=== PATIENT | female | born 1960 | race Caucasian/White ===

== ENCOUNTER 2020-01-29 10:25 | Inpatient (IN) ==
--- NOTE | 2020-01-20 14:50 | PAT Medication Instructions ---
Medication Instructions Date of Service January 20, 2020 Home Medications cholecalciferol (vitamin D3) [Vitamin D3] 50 mcg PO QAM coenzyme Q10 [Co Q-10] 200 mg PO QAM cyanocobalamin (vitamin B-12) [Vitamin B-12] 1,000 mcg PO UD levothyroxine 125 mcg PO QAM meloxicam 15 mg PO DAILY PRN multivitamin 1 cap PO QAM ASK your surgeon for instructions meloxicam 15 mg PO DAILY PRN STOP taking 2 weeks before surgery coenzyme Q10 [Co Q-10] 200 mg PO QAM DO NOT take the morning of surgery cholecalciferol (vitamin D3) [Vitamin D3] 50 mcg PO QAM cyanocobalamin (vitamin B-12) [Vitamin B-12] 1,000 mcg PO UD multivitamin 1 cap PO QAM Take morning of surgery With a small sip of water, OTHERWISE NOTHING TO EAT OR DRINK AFTER MIDNIGHT: levothyroxine 125 mcg PO QAM Other Notes If you have any questions please call us at [phone] or [phone] or [phone] or [phone]
--- NOTE | 2020-01-22 14:59 | Anesthesiology Consultation ---
Date of Service January 22, 2020 Assessment & Plan (1) Encounter for pre-operative examination: COVID Status: As of 01/21 assessment, patient denies travel to endemic area, known exposure/sick contacts, or symptoms of COVID19. Patient instructed to follow strict social distancing guidelines, wear a mask in public and avoid travel for 14 days prior to surgery. Preoperative COVID19 testing completed today. Patient made aware to self-isolate as much as possible between COVID testing and surgery. Chart Review Chart Review: Acceptable Risk for Surgery and Patient seen in Pre Admission Testing Teaching & Discussion Instructed NPO after midnight before surgery, except medications with 15 cc of water. Medication instructions provided according to the PAT guidelines. History Surgery Operation Date: 01/29/20 13:50 Proposed Procedures p Left Total Knee Arthroplasty - Shree Chang MD Height/Weight Height: 5 ft 4.5 in Weight: 138.3 kg Allergies Allergy/AdvReac Type Severity Reaction Status Date / Time No Known Allergies Allergy Verified 01/17/20 14:20 Medications Home Medications Medication Instructions Recorded Confirmed Last Taken cholecalciferol (vitamin D3) 50 mcg PO QAM 01/17/20 01/17/20 Unknown [Vitamin D3] coenzyme Q10 [Co Q-10] 200 mg PO QAM 01/17/20 01/17/20 Unknown cyanocobalamin (vitamin B-12) 1,000 mcg PO UD 01/17/20 01/17/20 Unknown [Vitamin B-12] levothyroxine 125 mcg PO QAM 01/17/20 01/17/20 Unknown meloxicam 15 mg PO DAILY PRN 01/17/20 01/17/20 Unknown multivitamin 1 cap PO QAM 01/17/20 01/17/20 Unknown Past Medical History Medical History Cough in cold weather Degenerative disc disease lumbar area Hiatal hernia small and no treatment History of pericarditis about 11 years ago had heart cath and was normal. Was on colchicine for some time, relieved all symptoms. Has had a few mild flare ups since but none for several years. Hypothyroidism Morbid obesity Exercise / Class Metabolic Activity II 4-5 Yardwork/Stairs/Walk up hill (Denies CP or SOB with 1 FOS) Past Surgical History Surgical History Hx of abdominal surgery joaquín moore and then fell after surgery and injured abd Hx of appendectomy Hx of arthroscopy of right knee Hx of cardiac cath due to pericarditis [facility] about 11 years ago Hx of cholecystectomy with adhesions Hx of colonoscopy Hx of gastric bypass 20 years ago Hx of laparoscopy several Hx of total hysterectomy Past Anesthesia History No Hx of Anesthesia Complications and No Family Hx of Anesthesia Complications History of PONV No Hx of PONV and No Hx of Motion Sickness Social History Smoking Status: Never smoker Do You Dip or Chew Tobacco: No Hx Alcohol Use: No Hx Substance Use: No substance use type: does not use Review of Systems Pt denies any recent chest pain, shortness of breath, palpitations, cough, fever or URI. Physical Exam Vital Signs BP: 143/86 P: 78bpm SPO2: 96% RA T: 98.1 F R: 16 Constitutional + morbidly obese ENMT Mouth: + dental restorations (upper L side crown); no chipped teeth and no loose teeth Thyromental Distance: > or= 3.5 Finger Breadths (3.5) Mallampati Class: II Neck normal visual inspection; neck extension not limited Respiratory normal respiratory effort Auscultation: lungs clear to auscultation bilaterally Cardiovascular Rate/Rhythm: regular rate and regular rhythm Heart Sounds: no murmur Extremities: no edema Testing Laboratory Results 01/22/20 15:20 01/22/20 15:20 PT 10.8 Seconds (9.0-12.0) 01/22/20 15:20 INR 1.0 (0.9-1.1) 01/22/20 15:20 APTT 28.1 Seconds (21.0-31.0) 01/22/20 15:20 Hemoglobin A1c 5.6 % (4.5-5.6) 01/22/20 15:20 Urine Color Yellow 01/22/20 15:20 Urine Appearance Clear (Clear) 01/22/20 15:20 Urine pH 6.0 (4.5-7.5) 01/22/20 15:20 Ur Specific [place] 1.025 (1.000-1.030) 01/22/20 15:20 Urine Protein Negative (Negative) 01/22/20 15:20 Urine Glucose (UA) Negative (Negative) 01/22/20 15:20 Urine Ketones Negative (Negative) 01/22/20 15:20 Urine Nitrite Negative (Negative) 01/22/20 15:20 Ur Leukocyte Esterase 2+ (Negative) H 01/22/20 15:20 Urine WBC (Auto) 10-30 /hpf (0-5) H 01/22/20 15:20 Urine RBC (Auto) 5-10 /hpf (0-4) H 01/22/20 15:20 U Hyaline Cast (Auto) 1-5 /lpf (0-5) 01/22/20 15:20 U Epithel Cells (Auto) >30 /lpf (0-5) H 01/22/20 15:20 Urine Bacteria (Auto) 1+ (Negative) H 01/22/20 15:20 Blood Type A Negative 01/22/20 15:20 Antibody Screen NEGATIVE 01/22/20 15:20 Electrocardiogram Date: 01/22/20 Findings: + NSR @ (70bpm) Chest X-Ray Date: 01/22/20 Findings: + NAD
[2020-01-22 16:07] LABS: Basophils # (auto) 0.01 K/uL (0-0.2); Basophils % (auto) 0.2 %; Eosinophils # (auto) 0.13 K/uL (0-0.5); Eosinophils % (auto) 2.2 %; Hematocrit (blood only) 40.9 % (37-47); Hemoglobin 13.6 g/dL (12.0-16.0); Immature Granulocytes # (auto) 0.01 K/uL (0.00-0.02); Immature Granulocytes % (auto) 0.2 %; Lymphocytes # (auto) 1.32 K/uL (1.2-3.4); Lymphocytes % (auto) 22.6 %; Mean Corpuscular Hemoglobin 29.2 pg (25-34); Mean Corpuscular Hgb Conc 33.3 g/dL (32-36); Mean Platelet Volume 9.6 fL (7.4-10.4); Monocytes # (auto) 0.61 K/uL (0.11-0.59); Monocytes % (auto) 10.4 %; Neutrophils # (auto) 3.77 K/uL (1.4-6.5); Neutrophils % (auto) 64.4 %; Platelet Count 331 K/uL (130-400); RDW Coefficient of Variation 13.2 % (11.5-14.5); RDW Standard Deviation 41.8 fL (36.4-46.3); Red Blood Count 4.65 M/uL (4.2-5.4); White Blood Count 5.85 K/uL (4.8-10.8)
[2020-01-22 16:17] LABS: Albumin Level 3.2 gm/dl (3.4-5.0); BUN Creatinine Ratio 19.1 (10-20); Calcium 8.7 mg/dl (8.5-10.1); Creatinine Clr Calc Pharmacy 104.9 ml/min; Est GFR (African American) 92.1; Est GFR (Non-African American) 79.5; Potassium 4.5 mmol/L (3.5-5.1)
[2020-01-22 16:20] LABS: Appearance Urine Clear (Clear); Bacteria Urine Automated 1+ (Negative); Bilirubin Urine Negative (Negative); Blood Urine Negative (Negative); Color Urine Yellow; Epithelial Cell Urine Auto >30 /lpf (0-5); Glucose Urine UA Negative (Negative); Ketones Urine Negative (Negative); Leukocyte Esterase Urine 2+ (Negative); Nitrite Urine Negative (Negative); Protein Urine Negative (Negative); Specific Gravity Urine 1.025 (1.000-1.030); Urobilinogen Urine Negative (Negative)
[2020-01-22 16:21] LABS: Partial Thromboplastin Time 28.1 Seconds (21.0-31.0); Prothrombin Time 10.8 Seconds (9.0-12.0)
--- NOTE | 2020-01-22 16:38 | XRay Report ---
XR chest Pre-admission PA/Lat HISTORY: Preop. COMPARISON: None. FINDINGS: The lungs are clear. Cardiac silhouette is normal in size. No pleural effusions. No pneumot horax. IMPRESSION: No acute process. ACT 112: Negative or not required by law. Electronically signed by: Ankit Calvert M.D. 01/22/2020 4:37 PM
--- NOTE | 2020-01-22 17:25 | Electrocardiogram Report ---
Test Reason : Blood Pressure : / mmHG Vent. Rate : 070 BPM Atrial Rate : 070 BPM P-R Int : 146 ms QRS Dur : 086 ms QT Int : 420 ms P-R-T Axes : 068 023 038 degrees QTc Int : 453 ms Normal sinus rhythm Normal ECG No previous ECGs available Confirmed by Jaydon Stone ([id number]) on 01/22/2020 5:24:31 PM Referred By: Shree Chang Confirmed By:Jaydon Stone
[2020-01-23 05:43] LABS: Estimated Average Glucose 114 mg/dl; Hemoglobin A1C 5.6 % (4.5-5.6)
--- NOTE | 2020-01-28 18:29 | History and Physical Report ---
DATE OF ADMISSION: 01/29/2020 CHIEF COMPLAINT: Chronic left knee pain. HISTORY OF PRESENT ILLNESS: This is a 59-year-old female patient of Dr. Chang'quinn complaining of chronic left knee pain, longstanding, now progressively getting worse. The patient has failed conservative treatment including intra-articular injections, anti-inflammatories, home exercise program and the use of a brace. The patient has an increased pain with weightbearing activities and her pain does interfere with her activities of daily living. The patient has been diagnosed with end-stage osteoarthritis per clinical and radiographic exams. The patient wished to proceed with a left total knee arthroplasty. PAST MEDICAL HISTORY: Asthma, hypothyroidism, low calcium, osteoarthritis, TMJ, spine problems, hiatal hernia, obesity. SOCIAL HISTORY: Nonsmoker and nondrinker. PAST SURGICAL HISTORY: 1. Abdominal surgery x8. 2. Gastric bypass. 3. Cholecystectomy. 4. Hysterectomy. 5. Appendectomy. 6. Right knee. FAMILY HISTORY: Noncontributory. REVIEW OF SYSTEMS: Chronic left knee pain and instability. Otherwise, denies any shortness of breath, chest pain, nausea, vomiting or any other joint complaints. MEDICATIONS: 1. Levothyroxine 125 mcg daily. 2. Meloxicam 15 mg daily. 3. Albuterol inhaler 90 mcg as needed. 4. CoQ10 200 mg daily. 5. Bariatric Fusion as needed. 6. Vitamin D3 2000 international units daily. 7. Vitamin B12 injectable one time every 3 months. ALLERGIES: No known drug allergies. PHYSICAL EXAMINATION: GENERAL: Well-developed, well-nourished 59-year-old female in no acute distress. She is alert and oriented x3 and pleasant. HEENT: Normocephalic, atraumatic. Extraocular motions are intact. Pupils are equal and reactive to light. HEART: Regular rate and rhythm, no murmurs. LUNGS: Clear. ABDOMEN: Soft, nontender, bowel sounds present. EXTREMITIES: Left knee 0-90 range of motion, valgus deformity. Stable varus and valgus stressing. Mild effusion. Morbid obesity. Neurologically and neurovascularly intact in her left lower extremity. DIAGNOSES: Left knee end-stage osteoarthritis, asthma, hypothyroidism, hypocalcemia, osteoarthritis, temporomandibular joint, spine problems, hiatal hernia, obesity. PLAN: The patient was advised of her diagnosis. Indications, risks, benefits, postop course have all been reviewed. The patient wished to proceed with a left total knee arthroplasty. Necessary consent forms, preoperative testing and clearances will be obtained.
[~2020-01-29 10:25] MED LIST: ACETAMINOPHEN 500 MG TAB PO SCH; BUPIVACAINE 0.25% 30 ML VIAL ONE; BUPIVACAINE 0.5 % 5 MG/1 ML PF 10ML VIAL ONE; CEFAZOLIN 3000MG 72.5 ML IV SCH; CeleBREX 200 MG CAP PO SCH; FAMOTIDINE 20 MG TAB PO SCH; GABAPENTIN 600 MG DOSE PO SCH; LIDOCAINE HCL 2% 2 ML VIAL/AMP(20MG/ML) INFIL ONE; LR 500ML BOLUS, THEN 15ML/HR IV SCH; METOCLOPRAMIDE HCL 10 MG TABLET PO SCH; MIDAZOLAM HCL 1 MG/ML 2ML VIAL ONE; PROPOFOL IV EMULSION 10 MG/ML 20 ML VIAL IV ONE; ROPIVACAINE 0.5% HCL/PF 150 MG, BUPIVACAINE 0.5% MPF 30 ML, EPINEPHrine 30MG/30ML (OR U... INSTIL SCH; TRANEXAMIC ACID 1,000 MG **IV Intra-op IV SCH; TRANEXAMIC ACID 1,000 MG **IV Pre-op IV SCH; dexAMETHasone 4 MG TAB PO SCH
--- NOTE | 2020-01-29 10:39 | History & Physical Bridge Note ---
Date of Service January 29, 2020 History & Physical Bridge Note I have examined the patient, reviewed the History & Physical and in the interval since the performance of the History & Physical I have noted the following changes of clinical significance: no changes noted
[2020-01-29] MEDS ORDERED: BACITRACIN INJ 50,000 UNIT VIAL ONE (10:50)
[2020-01-29] MEDS ORDERED: ORTHO JOINT ANESTHETIC ONE (10:50)
[2020-01-29] MEDS ORDERED: ONDANSETRON INJ 2 MG/ML 2 ML VIAL IV PRN ×2 (11:37→16:17)
[2020-01-29] MEDS ORDERED: ATROPINE SULFATE 0.1 MG/ML 10ML SYR IV PRN (11:37)
[2020-01-29] MEDS ORDERED: ePHEDrine sulfate 50 MG/ML AMP IV PRN (11:37)
[2020-01-29] MEDS ORDERED: fentaNYL citrate 100 MCG/2 ML VIAL IV PRN (11:37)
[2020-01-29] MEDS ORDERED: MIDAZOLAM HCL 1 MG/ML 2ML VIAL ONE ×2 (12:28→14:14)
[2020-01-29] MEDS ORDERED: GLYCOPYRROLATE 0.2 MG/ML VIAL ONE (12:29)
[2020-01-29] MEDS ORDERED: PROPOFOL IV EMULSION 10 MG/ML 20 ML VIAL IV ONE ×2 (13:29→14:33)
--- NOTE | 2020-01-29 14:56 | Operative Report ---
Post Operative Report Pre & Post Diagnosis Operation Date: 01/29/20 12:30 Pre-Op Diagnosis: Primary Osteoarthritis, Left Knee, morbid obesity BMI 51.5 Post-Op Diagnosis: Primary Osteoarthritis, Left Knee, morbid obesity BMI 51.5 I identified the patient and participated in the time-out.: Yes Procedure Operation Date: 01/29/20 12:30 Actual Procedures p Left Total Knee Arthroplasty(Left), increased difficulty morbid obesity BMI 51.5, superficial wound VAC application- Shree Chang MD Surgeon Shree Chang MD Link Trainer Teacher Alfonzo RIGGINS Estimated Blood Loss 10 Findings Consistent with Post-Op Diagnosis Specimens Bone cuts Drains 2 Hemovac Anesthesia Type MAC Spinal Regional Complications none Disposition Accompanied Patient To Recovery: No Disposition: Recovery Room Indications 59-year-old female with chronic bilateral severe osteoarthritis of the knees. Her left knee specifically has significant bone loss of the patella with grade 4 patellofemoral OA and tricompartmental osteoarthritis. Patient's had extensive conservative management. Patient's had some effort at weight loss. Description of Procedure Patient taken to the operating room placed supine on the operating table and anesthetized under spinal MAC regional anesthesia. Exam under anesthesia demonstrated 15 degree flexion fracture knee flexion 115 degrees her calf met her thigh after that point. A pneumatic tourniquet was placed about the markedly obese thigh of the left lower extremity. The left lower extremity was prepped and draped in usual fashion. Leg was elevated exsanguinated with an Esmarch bandage and the pneumatic was raised to 350 mm mercury. An anterior incision was made across the left knee. The skin was incised longitudinally subcutaneous flaps were elevated and an incision was made through the medial retinaculum extending up into the mid third of the quadriceps tendon and extended down to the medial tibial tubercle. Intra-articular findings demonstrated tricompartmental osteoarthritis severe grade 4 osteoarthritis patellofemoral joint with significant bone loss toward the lateral facet of the patella. There are tricompartmental osteophytes. Chronic lateral meniscus tear.. The knee was exposed by excising the infrapatellar fat pad, excising the meniscal remnants and the anterior cruciate ligament. Any inflamed synovial tissue was resected. The fat pad over the anterior femur was resected for placement of the component in that area. The lateral synovial bands were released and a synovial band was resected. Appropriate releases were performed to balance ligaments. The femur was exposed. The intramedullary drill hole was made into the femur and the guide brielle was placed and the distal femoral cut made with a +2 cut from standard cut at 5 degree valgus. The distal femoral cut was made with the oscillating saw. The size 9, 4-in-1 cutting block was placed. The anterior and posterior chamfer cuts were made. The knee was extended and a subperiosteal peel lateral release was performed around the patella. The patella width was measured and there was marked thinning to the point where we could not resect to the area of the bone loss and had to resect the patella tilt 14 mm width. There were large cysts in the subchondral bone of the patella which were curetted out. The sclerotic area of bone that remained in the area that was thinner than our cut was curetted to roughen surface to accept cement. The 35x 8.5 mm symmetrical patella was used. 3 drill holes are made for the pegs. The tibia was exposed. A custom tibial cutting block was positioned and drill holes were made for the cutting guide. Cutting guide was placed and the proximal cut was made with the oscillating saw. All osteophytes were resected. The lamina senior group manager was used to assess ligamentous balance and the ligaments were balanced in extension and flexion. The tibia was reexposed and measured for a size E tibial component. This was externally rotated in line with the tibial tubercle and the fixation pins were drilled. The proximal tibia was fashioned with the drill and punch. The size 9 CR left femoral trial was inserted. The trial MC inserts were used. The 11mm insert gave balanced ligaments through full range of motion. The patella tracked centrally. the trials were removed. The orthomix anesthetic cocktail was injected per protocol. The knee was then copiously irrigated with pulsatile lavage antibiotic solution with bacitracin. The final components were cemented with Simplex cement. The final components were [employer] persona 9 narrow CR left femur, E tibia, 11 MC tibial polyethylene and 35 8.5 mm symmetrical patella. While the cement cured with the knee in full extension the Betadine soak was used per protocol. After the cement cured, the knee joint was copiously irrigated with antibiotic solution with bacitracin. 2 drains were brought out laterally and connected to a Hemovac. The quadriceps tendon and medial retinaculum were closed with interrupted [id number] #1 Vicryl sutures. The knee was taken through a full range of motion and repair was secure. The subcutaneous tissues were closed with 2-0 Vicryl sutures and skin was closed with brittany. Sterile dressings were applied and the patient tolerated the procedure well. Alfonzo RIGGINS my physician teachers' assistant, assisted in soft tissue retraction instrument management leg positioning the closure and will participate in the postoperative care of the patient. There was increased difficulty the procedure due to her morbid obesity BMI 51.5 requiring a least 30 minutes more surgical time than typical. I attest to the content of the Intraoperative Record and any orders documented therein. Any exceptions are noted below.
--- NOTE | 2020-01-29 16:10 | XRay Report ---
XR knee LT 1 or 2V routine CLINICAL HISTORY: Surgical Post Op COMPARISON: None. DISCUSSION: Anatomic alignment post total left knee arthroplasty. Good contact between prosthetic and underlying bone. Expected soft tissue postoperative changes are present. IMPRESSION: Anatomic alignment post total left knee arthroplasty. ACT 112: Negative or not required by law. The above report was generated using voice recognition software. It may contain grammatical, syntax or spelling errors. Electronically signed by: Octavio Leggett M.D. 01/29/2020 4:08 PM
[2020-01-29] MEDS ORDERED: NALOXONE HCL 0.4 MG/1 ML VIAL/CARP IV PRN (16:17)
[2020-01-29] MEDS ORDERED: HYDROmorphone INJ 0.5 MG/0.5 ML SYR IV PRN (16:17)
[2020-01-29] MEDS ORDERED: DiphenhydrAMINE HCL 50 MG/ML VIAL IV PRN (16:17)
[2020-01-29] MEDS ORDERED: bisacodyL 10 MG SUPP PR PRN (16:17)
[2020-01-29] MEDS ORDERED: MAGNESIUM HYDROXIDE SUSP 30 ML UDC PO PRN (16:17)
--- NOTE | 2020-01-29 16:58 | Anesthesiology Progress Note ---
Date of Service January 29, 2020 Anesthesia Post Procedure Vital Signs Vital Signs: Temp Pulse Pulse Resp BP BP Pulse Ox 01/29/20 16:47 36.4 C L 70 16 107/73 95 01/29/20 16:17 36.5 C 78 18 116/79 96 01/29/20 15:55 36.6 C 76 16 121/76 96 01/29/20 15:45 72 16 120/75 96 01/29/20 15:35 71 16 108/75 96 01/29/20 15:25 36.8 C 89 16 112/74 95 01/29/20 11:50 74 18 111/76 94 01/29/20 11:09 37.5 C 89 20 146/85 H 96 Pain Intensity Left Knee: Pain Intensity: 7 Transfer of Care Handoff Completed per policy Notes Mental Status: alert / awake / arousable and participated in evaluation Patient Amnestic to Procedure: Yes Nausea / Vomiting: adequately controlled Pain: adequately controlled Airway Patency, RR, SpO2: stable & adequate BP & HR: stable & adequate Hydration State: stable & adequate Neuraxial Anesthesia: was administered and sensory block is resolving Anesthetic Complications: no major complications apparent and Pt Satisfied with anesthetic care
[2020-01-29] MEDS: SODIUM CHLORIDE 0.9% 1000ML 1,000 ML IV SCH (18:57)
[2020-01-29] MEDS: ACETAMINOPHEN 500 MG TAB PO SCH (20:08)
[2020-01-29] MEDS: CEFAZOLIN 2000MG 2,000 MG/15 ML SYR IV SCH (20:08)
[2020-01-29] MEDS: DOCUSATE SODIUM 100 MG CAP PO SCH (20:10)
[2020-01-29] MEDS: ASPIRIN 81 MG ECTAB PO SCH (20:10)
[2020-01-29] MEDS: SENNA 8.6 MG TAB PO SCH (20:10)
[2020-01-29] MEDS: OXYCODONE HCL IR 5 MG TAB (IMMEDIATE RELEASE) PO PRN (23:34)
[2020-01-30] MEDS: CEFAZOLIN 2000MG 2,000 MG/15 ML SYR IV SCH (03:20)
[2020-01-30] MEDS: SODIUM CHLORIDE 0.9% 1000ML 1,000 ML IV SCH (03:29)
[2020-01-30] MEDS: LEVOTHYROXINE SODIUM 125 MCG TABLET PO SCH (05:41)
[2020-01-30] MEDS: ACETAMINOPHEN 500 MG TAB PO SCH ×3 (05:41→21:46)
[2020-01-30 05:44] LABS: Hematocrit (blood only) 36.5 % (37-47); Hemoglobin 12.2 g/dL (12.0-16.0); Mean Corpuscular Hgb Conc 33.4 g/dL (32-36); Mean Corpuscular Volume 86.7 fL (80-100); Mean Platelet Volume 9.2 fL (7.4-10.4); Platelet Count 270 K/uL (130-400); RDW Standard Deviation 41.2 fL (36.4-46.3); Red Blood Count 4.21 M/uL (4.2-5.4)
[2020-01-30 06:15] LABS: BUN Creatinine Ratio 23.3 (10-20); Calcium 7.9 mg/dl (8.5-10.1); Creatinine Clr Calc Pharmacy 121.3 ml/min; Est GFR (African American) 109.9; Est GFR (Non-African American) 94.8; Potassium 3.8 mmol/L (3.5-5.1)
--- NOTE | 2020-01-30 07:33 | Anesthesiology Progress Note ---
Date of Service January 30, 2020 Anesthesia Post Procedure Vital Signs Vital Signs: Temp Pulse Pulse Resp BP BP Pulse Ox 01/30/20 07:07 36.5 C 68 17 109/72 94 01/30/20 03:16 36.4 C L 64 20 115/76 94 01/29/20 23:08 36.4 C L 69 16 112/72 92 01/29/20 18:56 36.4 C L 75 18 105/70 96 01/29/20 17:20 79 20 108/74 94 01/29/20 16:47 36.4 C L 70 16 107/73 95 01/29/20 16:17 36.5 C 78 18 116/79 96 01/29/20 15:55 36.6 C 76 16 121/76 96 01/29/20 15:45 72 16 120/75 96 01/29/20 15:35 71 16 108/75 96 01/29/20 15:25 36.8 C 89 16 112/74 95 01/29/20 11:50 74 18 111/76 94 01/29/20 11:09 37.5 C 89 20 146/85 H 96 Pain Intensity Left Knee: Pain Intensity: 8 Transfer of Care Handoff Completed per policy Notes Mental Status: alert / awake / arousable Nausea / Vomiting: adequately controlled Pain: adequately controlled Airway Patency, RR, SpO2: stable & adequate BP & HR: stable & adequate Hydration State: stable & adequate Neuraxial Anesthesia: was administered and sensory block resolved Anesthetic Complications: no major complications apparent and Pt Satisfied with anesthetic care
[2020-01-30] MEDS: OXYCODONE HCL IR 5 MG TAB (IMMEDIATE RELEASE) PO PRN ×3 (08:53→23:38)
[2020-01-30] MEDS: ASPIRIN 81 MG ECTAB PO SCH ×2 (08:54→21:46)
[2020-01-30] MEDS: MULTIVITAMIN TAB PO SCH (08:54)
[2020-01-30] MEDS: DOCUSATE SODIUM 100 MG CAP PO SCH ×2 (08:54→21:46)
[2020-01-30] MEDS ORDERED: NON-FORMULARY MEDICATION (Coenzyme Q10 [Co Q-10] 200 MG) PO SCH (09:00)
--- NOTE | 2020-01-30 10:51 | Orthopedic Progress Note ---
Date of Service January 30, 2020 Assessment & Plan (1) Degenerative arthritis of left knee: POD #1, Left TKA PT/ OT DVT proph- ASA D/C planning- Home w HH AM Labs stable. Admission and Anticipated Discharge Date Admission Date: January 29, 2020 Subjective POD #1, Feeling well. Denies SOB, CP, N/V, dizzines. Pain controlled well. Wishes HH on D/C. Physical Exam Physical Exam: Left Knee dressings c/d/i, no drainage. Toes/ ankle mobile. No calf tenderness. N/V+ A&Ox3. Results & Data ([facility]) Vital Signs (Past 12 Hours) Vital Signs Temp Pulse Pulse Resp BP Pulse Ox 01/30/20 07:07 36.5 C 68 17 109/72 94 01/30/20 03:16 36.4 C L 64 20 115/76 94 01/29/20 23:08 36.4 C L 69 16 112/72 92
--- NOTE | 2020-01-30 15:03 | Hospitalist Consultation ---
Date of Consultation January 30, 2020 Assessment & Plan (1) Degenerative arthritis of left knee: s/p Left TKA on 01/[address] Chang PT/ OT D/C planning- Home w HH Pre-op Hb 13.6 (2) Hypothyroidism: continue home meds (3) DVT prophylaxis: Aspirin as per ortho History of Present Illness Attending Physician: Shree Chang MD History of Present Illness 59 y/o F who was admitted on 01/28 s/p L TKA with Dr. Chang. Pt is doing well post-op. Tolerating PO without issue. Pt denies fever, SOB, chest pain, abd pain, n/v/c/d, LE swelling. She has some pain related to her TKA site, but this is minimal thus far. She states she is quite happy with her current care. Allergies Allergy/AdvReac Type Severity Reaction Status Date / Time No Known Allergies Allergy Verified 01/29/20 11:05 Home Medications Home Medications Medication Instructions Recorded Confirmed Type cholecalciferol (vitamin D3) 50 mcg PO QAM 01/17/20 01/29/20 History [Vitamin D3] coenzyme Q10 [Co Q-10] 200 mg PO QAM 01/17/20 01/29/20 History cyanocobalamin (vitamin B-12) 1,000 mcg PO UD 01/17/20 01/29/20 History [Vitamin B-12] levothyroxine 125 mcg PO QAM 01/17/20 01/29/20 History meloxicam 15 mg PO DAILY PRN 01/17/20 01/29/20 History multivitamin 1 cap PO QAM 01/17/20 01/29/20 History acetaminophen 1,000 mg PO Q8 14 Days #84 tab 01/30/20 Rx aspirin 81 mg PO BID 30 Days #60 tab 01/30/20 Rx sennosides [Senokot] 17.2 mg PO HS #30 tab 01/30/20 Rx Patient History Medical History Cough in cold weather Degenerative disc disease lumbar area Hiatal hernia small and no treatment History of pericarditis about 11 years ago had heart cath and was normal. Was on colchicine for some time, relieved all symptoms. Has had a few mild flare ups since but none for several years. Hypothyroidism Morbid obesity Surgical History Hx of abdominal surgery tummy tuck and then fell after surgery and injured abd Hx of appendectomy Hx of arthroscopy of right knee Hx of cardiac cath due to pericarditis [facility] about 11 years ago Hx of cholecystectomy with adhesions Hx of colonoscopy Hx of gastric bypass 20 years ago Hx of laparoscopy several Hx of total hysterectomy Social History Preferred Language: [place] Communication Ability: Effective Coal Trammer Required: No Beliefs That Will Affect Care: None Current Living Situation: Spouse Other Information That Helps Us Care for You: No Feels Safe at Home: Yes Safety Concerns: Feels Safe At This Time Smoking Status: Never smoker Do You Dip or Chew Tobacco: No ; Second Hand Exposure: No ; Tobacco Cessation Education Requested by Patient: No Hx Alcohol Use: No Hx Substance Use: No Review of Systems Review of Systems: Pertinent positives and negatives reviewed in HPI--all others negative Physical Exam Constitutional: WD/WN, vitals as above Eyes: normal visual [place] by confrontation and + anicteric sclerae Neck: normal visual inspection and trachea midline Respiratory: normal respiratory effort, lungs clear to auscultation Cardiovascular: Rate/Rhythm: regular rate and regular rhythm Gastrointestinal (Abdomen): Inspection/Auscultation: abdomen not distended Percussion/Palpation: abdomen soft; abdomen nontender Musculoskeletal: Head/Neck/Chest: normocephalic and head atraumatic negative for edema, peripheral pulses intact Skin: no rashes, warm and dry Neurologic: awake; not confused Speech / Cognition: normal speech Psychiatric: A+Ox3, euthymic affect Results & Data Results & Data ([facility]) Vital Signs (Past 12 Hours) Vital Signs Temp Pulse Pulse Resp BP Pulse Ox 01/30/20 11:04 36.7 C 80 17 121/78 95 01/30/20 07:07 36.5 C 68 17 109/72 94 01/30/20 03:16 36.4 C L 64 20 115/76 94 PG Care Time/CCT Total # of Minutes Spent Total Time Spent with Patient: Total time spent is greater than 50% in coordination of care (as documented) at patient's floor/unit and/or counseling patient: Coding Level of Care Code 68175 Inpt Consult Level 3 Diagnoses Degenerative arthritis of left knee M17.12 Hypothyroidism E03.9 DVT prophylaxis Z29.9
[2020-01-30] MEDS: SENNA 8.6 MG TAB PO SCH (21:46)
[2020-01-31] MEDS: ACETAMINOPHEN 500 MG TAB PO SCH ×3 (05:34→21:03)
[2020-01-31] MEDS: LEVOTHYROXINE SODIUM 125 MCG TABLET PO SCH (05:35)
[2020-01-31] MEDS: OXYCODONE HCL IR 5 MG TAB (IMMEDIATE RELEASE) PO PRN ×2 (07:49→16:18)
[2020-01-31] MEDS ORDERED: KETOROLAC 30 MG/ML VIAL IV ONE (08:11)
--- NOTE | 2020-01-31 08:43 | Orthopedic Progress Note ---
Date of Service January 31, 2020 Assessment & Plan (1) Degenerative arthritis of left knee: POD #2, Left TKA We will add IV Toradol to her pain regimen. Give her 1 dose now and then every 6 hours PRN. I will recheck her later this morning to see how her pain control is. PT/ OT DVT proph- ASA D/C planning- Home w HH, possibly today if her pain is controlled. Admission and Anticipated Discharge Date Admission Date: January 29, 2020 Subjective Postop day 2 status post left total knee arthroplasty. Patient currently complaining of pain this morning. She feels she may have overdone her activity yesterday. No other complaints at this time. Denies chest pain, shortness of breath, lightheadedness. Physical Exam Physical Exam: Prevena dressing is clean, dry, and intact. No overt drainage noted. No erythema around the dressing. Calves are soft nontender. Neurovascular is intact. Toes are mobile. Results & Data ([facility]) Vital Signs (Past 12 Hours) Vital Signs Temp Pulse Pulse Resp BP Pulse Ox 01/31/20 07:19 36.7 C 76 18 111/75 96 01/30/20 23:29 36.9 C 73 18 105/70 97
[2020-01-31] MEDS: ASPIRIN 81 MG ECTAB PO SCH ×2 (08:44→21:02)
[2020-01-31] MEDS: MULTIVITAMIN TAB PO SCH (08:44)
[2020-01-31] MEDS: DOCUSATE SODIUM 100 MG CAP PO SCH ×2 (08:44→21:02)
--- NOTE | 2020-01-31 14:03 | Hospitalist Progress Note ---
Date of Service January 31, 2020 Assessment & Plan (1) Degenerative arthritis of left knee: s/p Left TKA on 01/[address] Chang PT/ OT D/C planning- Home w HH Pre-op Hb 13.6 (2) Hypothyroidism: continue home meds (3) DVT prophylaxis: Aspirin as per ortho Admission and Anticipated Discharge Date Admission Date: January 29, 2020 Subjective Pt reports a "bad night" in terms of pain to her L TKA site. She did not sleep much due to this. She was given toradol and feels much improved now. Tolerating PO without issue. Pt denies fever, SOB, chest pain, abd pain, n/v/c/d, LE swelling. Review of Systems Review of Systems: Pertinent positives and negatives reviewed in HPI--all others negative Physical Exam Constitutional: WD/WN, vitals as above Eyes: normal visual [place] by confrontation and + anicteric sclerae Neck: normal visual inspection and trachea midline Respiratory: normal respiratory effort, lungs clear to auscultation Cardiovascular: Rate/Rhythm: regular rate and regular rhythm Gastrointestinal (Abdomen): Inspection/Auscultation: abdomen not distended Percussion/Palpation: abdomen soft; abdomen nontender Musculoskeletal: Head/Neck/Chest: normocephalic and head atraumatic Skin: no rashes, warm and dry Neurologic: awake; not confused Speech / Cognition: normal speech Psychiatric: A+Ox3, euthymic affect Results & Data Results & Data ([facility]) Vital Signs (Past 12 Hours) Vital Signs Temp Pulse Resp BP Pulse Ox 01/31/20 07:19 36.7 C 76 18 111/75 96 PG Care Time/CCT Total # of Minutes Spent Total Time Spent with Patient: Total time spent is greater than 50% in coordination of care (as documented) at patient's floor/unit and/or counseling patient: Coding Level of Care Code 65509 Inpt Consult Level 2 Diagnoses Degenerative arthritis of left knee M17.12 Hypothyroidism E03.9 DVT prophylaxis Z29.9
[2020-01-31] MEDS: KETOROLAC 30 MG/ML VIAL IV PRN ×2 (14:14→21:06)
[2020-01-31] MEDS: SENNA 8.6 MG TAB PO SCH (21:02)
[2020-02-01] MEDS: LEVOTHYROXINE SODIUM 125 MCG TABLET PO SCH (06:41)
[2020-02-01] MEDS: ACETAMINOPHEN 500 MG TAB PO SCH (06:41)
[2020-02-01] MEDS: KETOROLAC 30 MG/ML VIAL IV PRN (06:41)
[2020-02-01] MEDS: ASPIRIN 81 MG ECTAB PO SCH (07:54)
[2020-02-01] MEDS: MULTIVITAMIN TAB PO SCH (07:54)
[2020-02-01] MEDS: DOCUSATE SODIUM 100 MG CAP PO SCH (07:54)
--- NOTE | 2020-02-01 08:00 | Orthopedic Progress Note ---
Date of Service February 01, 2020 Assessment & Plan (1) Degenerative arthritis of left knee: POD #3, Left TKA Pain management-much improved with Toradol PT/ OT DVT proph- ASA D/C planning- Home w HH, plan for d/c today. Admission and Anticipated Discharge Date Admission Date: January 29, 2020 Subjective Patient's pain is much improved this morning since Toradol was added. She is feeling well this morning. No complaints. Denies chest pain, sob, dizziness, light headedness, n/v/d. Review of Systems Review of Systems: All systems reviewed & are unremarkable except as noted in HPI & below Physical Exam Physical Exam: Left knee Prevena is c/d/i, suctioning. No calf tenderness. Toes mobile, good dorsiflexion. Distally n/v status intact. Constitutional: well developed and well nourished; no acute distress Results & Data ([facility] [place]) Vital Signs (Past 12 Hours) Vital Signs Temp Pulse Resp BP Pulse Ox 02/01/20 06:35 36.4 C L 83 16 119/81 96 01/31/20 23:01 36.7 C 88 22 127/77 93
--- NOTE | 2020-02-04 13:55 | Discharge Summary ---
Date of Service February 04, 2020 Discharge Data Allergies Allergy/AdvReac Type Severity Reaction Status Date / Time No Known Allergies Allergy Verified 01/29/20 11:05 Consultations 01/24/20 14:58 Consult Hospitalist Routine 01/29/20 16:17 Consult Case Management - Discharge Planning Routine Procedures Performed Operation Date: 01/29/20 12:30 Actual Procedures p Left Total Knee Arthroplasty(Left) - Shree Chang MD Ordered Studies 01/29/20 05:00 US - OR guided needle placemen Routine Discharge Plan Discharge Items Patient Disposition: Home - Home Health Services Reason For Visit: Unilateral Primary Osteoarthritis, Left Knee Discharge Diagnosis: Left knee Osteoarthritis Activity: Per Instructions section Weightbearing: Left weightbearing Weightbearing Comment: as tolerated with walker Non-emergency contact: Surgeon Call non-emergency contact if: your pain is not controlled, your temperature is above 101.5, your wound has increased redness and your wound has increased drainage Follow-up/Referrals: Miguel Sorensen DO [Primary Care Provider] - Diet: Regular Addtl Attending Provider Instructions: ACTIVITY RECOMMENDATIONS: SELF CARE INSTRUCTIONS AFTER TOTAL KNEE REPLACEMENT A. You may need to continue a physical therapy program after discharge from the hospital. There are several options available to you. Your doctor will assist you in selecting the best one for you. 1. An out-patient facility 2 to 3 times a week for therapy or home therapy. 2. Continue working on all exercises taught to you in the hospital. Your goals should be to increase bending of your knee to 90 degrees and beyond and to fully straighten your knee. B. You may progress at your own pace from walking with a walker or crutches to a cane; then to no assistive devices. C. Make walking a part of your daily routine. Be up as much as comfortable with rest periods throughout the day. Rest with leg elevation is very important. Use the ice wrap frequently for the first 3-4 weeks. D. There are no restrictions on activities. You may ride in a car, shop, participate in scrap hoist operator and all social activities. E. Wear the long elastic stockings (TRAVIS hose) 20 hours a day for 2 weeks after surgery. They can be removed several times a day for laundering and for a bath. F. You may shower, no tub baths until cleared by your doctor. SPECIAL CARE INSTRUCTIONS: VERY IMPORTANT TO READ AND REVIEW A. There are a few signs you need to watch for after you are home. Call [facility] if you notice any of the followin. Increased severe knee pain. Some pain is expected especially when you exercise. 2. Increased swelling in your leg or knee; pain or swelling of the calf muscle in either lower leg. 3. Any fluid drainage from the incision. 4. Shortness of breath or chest pain. B. Please call [facility] at if you have any concerns or questions about your operation or recovery. The doctor or his nurse will return your call promptly. C. You must take antibiotics before dental work, bladder, bowel or other surgery. Your doctor will provide you with a permanent care to carry describing this precaution. IMPORTANT: * REMEMBER TO TAKE ASPIRIN, 81 MG, TWICE DAILY FOR 4 WEEKS UNLESS OTHERWISE DIRECTED. THIS IS YOUR BLOOD THINNER. * HIGH RISK PATIENTS MAY BE PRESCRIBED A STRONGER BLOOD THINNER. THIS WILL BE PROVIDED AT DISCHARGE. * CALL IF INCREASED PAIN, REDNESS, DRAINAGE OR FEVER GREATER THAT 101. * WEAR TRAVIS HOSE 20 HOURS PER DAY FOR 2 WEEKS. * Prevena- This is a large suction dressing covering your incision. This will help pull any excess drainage from the wound and allow your incision to heal properly. You may shower with this if you can keep the unit outside of the shower. If any bleeding or leakage is noted please call your doctor's office. This will remain on your incision for 7 days and then should be removed. This can be done yourself or by the home nursing staff if applicable. The entire unit is disposable once removed. Once removed, keep incision clean and dry. If redness or drainage is noted, please call your surgeon. . FOLLOW UP VISIT: If appointment is not already scheduled: Please call [facility] to make a follow-up appointment for 2 weeks after your surgery at . Stand-Alone Forms: [email or web address], Opioid Pain Management, Smoking Cessation Medications and DC Order Prescriptions: New sennosides [Senokot] 8.6 mg Tablet 17.2 mg PO HS Qty: 30 RF: 0 aspirin 81 mg Tablet,Delayed Release (Dr/Ec) 81 mg PO BID 30 Days Qty: 60 RF: 0 acetaminophen 500 mg Tablet 1,000 mg PO Q8 14 Days Qty: 84 RF: 0 celecoxib [Celebrex] 200 mg capsule 200 mg PO BID Qty: 60 RF: 0 oxycodone 5 mg tablet 5 - 10 mg PO .Q4H-6H MDD 6 PRN (Reason: pain) Qty: 30 RF: 0 Continued cyanocobalamin (vitamin B-12) [Vitamin B-12] 1,000 mcg Tablet 1,000 mcg PO UD RF: 0 multivitamin Capsule 1 cap PO QAM RF: 0 coenzyme Q10 [Co Q-10] 200 mg Capsule 200 mg PO QAM RF: 0 cholecalciferol (vitamin D3) [Vitamin D3] 50 mcg (2,000 unit) Tablet 50 mcg PO QAM RF: 0 levothyroxine 125 mcg Capsule 125 mcg PO QAM RF: 0 Discontinued meloxicam 15 mg Tablet 15 mg PO DAILY PRN (Reason: Pain) RF: 0 Discharge Orders: Discharge Order (Routine); Ordered 02/01/20 Ordered By: Bill Cartwright/Other Patient Handouts: DVT Post Op Prevention Admission Data Admit Date/Time: 01/29/20 15:35 Attending Provider: Shree Chang Admit Provider: Shree Chang Primary Care Provider: Miguel Sorensen Other Providers: Manolo Womack Other Interventions: Discharge Summary Assessment (RN) Last Done: 02/01/20 09:05 DC Date/Time DO NOT enter until pt leaves facility: 02/01/20 10:41
--- NOTE | 2020-02-04 14:40 | Discharge Summary (DS) ---
DISCHARGE DIAGNOSIS: Degenerative joint disease, left knee. SECONDARY DIAGNOSES: Degenerative disc disease, hiatal hernia, history of pericarditis, hypothyroidism, morbid obesity. CONSULTS: Dr. Myrna Nolen. COMPLICATIONS: None. PROCEDURES: Left total knee arthroplasty performed by Dr. Chang on 01/29/2020. BRIEF HISTORY: As dictated in history and physical. HOSPITAL SUMMARY: The patient was admitted on the above-noted date and had the above-noted surgery performed, which she tolerated well. The patient was started on PT and OT protocols on the following day and the patient was feeling well and pain was controlled. Vital signs were stable. She was afebrile and dressings were intact, neurovascularly intact. Toes were mobile and she was continued on her protocol. By her second postoperative day, she was complaining of moderate pain that morning and felt that she had overdone her activity the previous day. She had no complaints at that time and denied chest pain, shortness of breath or lightheadedness. Her Prevena dressing was intact and dry. No overt drainage noted. No erythema around the dressing. Calves were soft and nontender. Neurovascularly was intact. Toes were mobile. Vital signs were stable. She was afebrile. IV Toradol was added to her pain regimen and she was continued on PT, OT protocols and we would see how she progressed. Later that day her pain control was getting better, but was not yet fully controlled and she was requesting to stay another day. She was continuing on IV Toradol p.r.n. overnight as well as a regular pain regimen and was planning for discharge the following day. By 02/01/2020 pain control was much better and she was feeling well that morning. No complaints. Dressings were intact. Calves were soft, nontender, neurovascularly intact. Toes were mobile. Vital signs were stable. She was afebrile progressing with her physical therapy and it was felt she could be discharged to home. For further review, please see chart. LABORATORY AND X-RAY DATA: As per chart. DISCHARGE INSTRUCTIONS: The patient was discharged to home in satisfactory condition with home health services on 02/01/2020. DIET: Regular. ACTIVITY: Weightbearing as tolerated on left lower extremity with walker. Follow TK instruction sheets and special care instructions as noted. Follow up with Dr. Chang in 2 weeks. The patient to call for appointment if one has not been made for you. DISCHARGE MEDICATIONS: Acetaminophen 1000 mg p.o. q. 8 hours, aspirin 81 mg p.o. b.i.d., Celebrex 200 mg p.o. b.i.d., oxycodone 5-10 mg p.o. 4-6 hours p.r.n., sennosides 17.2 mg p.o. at bedtime p.r.n. constipation. Resume home meds as listed and stop taking meloxicam.
== END 2020-02-01 10:41 | disposition home health service (06) | DRG 470 ==
LOC: ASU 10:25 → 3E 15:35

== ENCOUNTER 2020-11-09 05:04 | Observation (INO) ==
--- NOTE | 2020-10-08 15:45 | PAT Medication Instructions ---
Medication Instructions Date of Service October 08, 2020 Home Medications cholecalciferol (vitamin D3) 50 mcg PO QAM coenzyme Q10 [Co Q-10] 200 mg PO QAM cyanocobalamin (vitamin B-12) 1,000 mcg PO UD levothyroxine 125 mcg PO QAM multivitamin 1 cap PO BID albuterol sulfate 1 inh INHALATION UD PRN sennosides [Senokot] 17.2 mg PO UD PRN STOP taking 2 weeks before surgery If surgery is within 2 weeks, stop taking as soon as possible. coenzyme Q10 [Co Q-10] 200 mg PO QAM DO NOT take the morning of surgery cholecalciferol (vitamin D3) 50 mcg PO QAM cyanocobalamin (vitamin B-12) 1,000 mcg PO UD multivitamin 1 cap PO BID sennosides [Senokot] 17.2 mg PO UD PRN Take morning of surgery With a small sip of water, OTHERWISE NOTHING TO EAT OR DRINK AFTER MIDNIGHT: levothyroxine 125 mcg PO QAM albuterol sulfate 1 inh INHALATION UD PRN (if needed, and bring with you to the hospital) Take evening before surgery multivitamin 1 cap PO BID albuterol sulfate 1 inh INHALATION UD PRN (if needed) sennosides [Senokot] 17.2 mg PO UD PRN (if needed) Other Notes If you have any questions please call us at [phone] or [phone] or or [phone]
--- NOTE | 2020-10-12 14:38 | Anesthesiology Consultation ---
Date of Service October 12, 2020 Assessment & Plan (1) Encounter for pre-operative examination: COVID screening: Per assessment on 10/12: Travel screen negative, no known COVID- 19 positive contacts or current COVID-19 related symptoms. Surgeon arranging preop COVID testing (scheduled 11/03; [facility]). Awaiting results. Chart Review Chart Review: Acceptable Risk for Surgery (pending surgeon-ordered PCP clearance) and Patient seen in Pre Admission Testing Teaching & Discussion Pre-Anesthesia Teaching/Discussion Notes: Instructed NPO after midnight before surgery,except medications with 15 cc of water. Medication instructions provided according to the PAT guidelines. History Surgery Operation Date: 11/09/20 07:00 Proposed Procedures p Right Total Knee Arthroplasty - Shree Chang MD Height/Weight Height: 5 ft 4.5 in Weight: 139.3 kg Allergies Allergy/AdvReac Type Severity Reaction Status Date / Time No Known Allergies Allergy Verified 09/29/20 08:32 Medications Home Medications Medication Instructions Recorded Confirmed Last Taken cholecalciferol (vitamin D3) 50 mcg PO QAM 01/17/20 09/29/20 01/22/20 [Vitamin D3] coenzyme Q10 [Co Q-10] 200 mg PO QAM 01/17/20 09/29/20 01/22/20 cyanocobalamin (vitamin B-12) 1,000 mcg PO UD 01/17/20 09/29/20 01/15/20 [Vitamin B-12] levothyroxine 125 mcg PO QAM 01/17/20 09/29/20 01/28/20 23:55 multivitamin 1 cap PO BID 01/17/20 09/29/20 01/28/20 10:00 albuterol sulfate 1 inh INHALATION UD PRN 09/29/20 09/29/20 Unknown sennosides [Senokot] 17.2 mg PO UD PRN 09/29/20 09/29/20 Unknown Past Medical History Medical History Chronic cough chronic cough with "cold weather" > inhaler PRN (no issues since Fall 2019) Degenerative disc disease lumbar Hiatal hernia small History of pericarditis 10+ years ago > heart cath done (was normal), symptoms resolved with colchicine (since discontinued), no issues x several years Hypothyroidism Morbid obesity Exercise / Class Metabolic Activity II 4-5 Yardwork/Stairs/Walk up hill Past Family History Family History Father Family history of diabetes mellitus Grandfather (Maternal) Family history of diabetes mellitus Grandfather (Paternal) Family history of diabetes mellitus Grandmother (Paternal) Family history of diabetes mellitus Grandmother (Maternal) Family history of diabetes mellitus Past Surgical History Surgical History History of total left knee replacement Hx of abdominal surgery Abdominoplasty (fall after surgery > abdominal injury) Hx of appendectomy Hx of arthroscopy of right knee Hx of cardiac cath Due to pericarditis ([facility] 10+ years ago) > no stents Hx of cholecystectomy with adhesions Hx of colonoscopy Hx of gastric bypass 20 years ago Hx of laparoscopy Several Hx of total hysterectomy Past Anesthesia History No Hx of Anesthesia Complications and No Family Hx of Anesthesia Complications History of PONV No Hx of PONV and No Hx of Motion Sickness Social History Smoking Status: Never smoker Do You Dip or Chew Tobacco: No Hx Alcohol Use: No Hx Substance Use: No substance use type: does not use Review of Systems Chronic cough (unchanged) r/t cold weather- no issues since Fall 2019. Patient denies chest pain, shortness of breath, dyspnea on exertion, fever, chills, wheezing, palpitations. Physical Exam Vital Signs VITALS BP 159/75 P 79 TEMP 98.3 SP02 94%RA RESP 16 PHYSICAL Full neck and c-spine range of motion. Full TMJ range of motion. TMD 3.5 finger breaths Mallampati Score 3 Dentition: intact, + crown (upper left side) Lungs: clear throughout to auscultation Cardiac: regular rate and rhythm, no murmurs noted Spine: normal Carotid arteries: negative bruit Extremities: no edema Testing Laboratory Results 10/12/20 14:52 10/12/20 14:52 PT 10.3 Seconds (9.0-12.0) 10/12/20 14:52 INR 1.0 (0.9-1.1) 10/12/20 14:52 APTT 25.7 Seconds (21.0-31.0) 10/12/20 14:52 Hemoglobin A1c 5.7 % (4.5-5.6) H 10/12/20 14:52 Urine Color Dark Yellow 10/12/20 14:52 Urine Appearance Clear (Clear) 10/12/20 14:52 Urine pH 5.0 (4.5-7.5) 10/12/20 14:52 Ur Specific [place] 1.033 (1.000-1.030) H 10/12/20 14:52 Urine Protein Negative (Negative) 10/12/20 14:52 Urine Glucose (UA) Negative (Negative) 10/12/20 14:52 Urine Ketones Trace (Negative) H 10/12/20 14:52 Urine Nitrite Negative (Negative) 10/12/20 14:52 Ur Leukocyte Esterase 2+ (Negative) H 10/12/20 14:52 Urine WBC (Auto) >30 /hpf (0-5) H 10/12/20 14:52 Urine RBC (Auto) 5-10 /hpf (0-4) H 10/12/20 14:52 U Hyaline Cast (Auto) 10-30 /lpf (0-5) H 10/12/20 14:52 U Epithel Cells (Auto) >30 /lpf (0-5) H 10/12/20 14:52 Urine Bacteria (Auto) 1+ (Negative) H 10/12/20 14:52 Blood Type A Negative 10/12/20 14:52 Antibody Screen NEGATIVE 10/12/20 14:52 Electrocardiogram Date: 01/21/21 Findings: + NSR @ (70) Chest X-Ray Date: 01/21/21 Findings: + NAD
[2020-10-12 15:45] LABS: Basophils # (auto) 0.02 K/uL (0-0.2); Basophils % (auto) 0.4 %; Eosinophils % (auto) 1.8 %; Hematocrit (blood only) 40.7 % (37-47); Hemoglobin 13.5 g/dL (12.0-16.0); Immature Granulocytes # (auto) 0.01 K/uL (0.00-0.02); Immature Granulocytes % (auto) 0.2 %; Lymphocytes # (auto) 1.54 K/uL (1.2-3.4); Mean Corpuscular Hemoglobin 28.8 pg (25-34); Mean Corpuscular Hgb Conc 33.2 g/dL (32-36); Mean Platelet Volume 9.7 fL (7.4-10.4); Monocytes # (auto) 0.56 K/uL (0.11-0.59); Monocytes % (auto) 9.8 %; Neutrophils # (auto) 3.47 K/uL (1.4-6.5); Neutrophils % (auto) 60.8 %; Platelet Count 332 K/uL (130-400); RDW Coefficient of Variation 13.4 % (11.5-14.5); RDW Standard Deviation 42.5 fL (36.4-46.3); Red Blood Count 4.68 M/uL (4.2-5.4)
[2020-10-12 15:51] LABS: Albumin Level 3.2 gm/dl (3.4-5.0); BUN Creatinine Ratio 17.1 (10-20); Calcium 8.4 mg/dl (8.5-10.1); Creatinine Clr Calc Pharmacy 106.7 ml/min; Est GFR (African American) 93.5; Est GFR (Non-African American) 80.7; Potassium 4.1 mmol/L (3.5-5.1)
[2020-10-12 15:55] LABS: Appearance Urine Clear (Clear); Bilirubin Urine Negative (Negative); Blood Urine Negative (Negative); Color Urine Dark Yellow; Epithelial Cell Urine Auto >30 /lpf (0-5); Glucose Urine UA Negative (Negative); Ketones Urine Trace (Negative); Leukocyte Esterase Urine 2+ (Negative); Nitrite Urine Negative (Negative); Protein Urine Negative (Negative); Specific Gravity Urine 1.033 (1.000-1.030); Urobilinogen Urine Negative (Negative); WBC Urine Automated >30 /hpf (0-5)
[2020-10-12 15:57] LABS: Partial Thromboplastin Time 25.7 Seconds (21.0-31.0); Prothrombin Time 10.3 Seconds (9.0-12.0)
[2020-10-12 16:08] LABS: Bacteria Urine Automated 1+ (Negative); Mucus Urine Present (None Prsent)
[2020-10-13 05:56] LABS: Estimated Average Glucose 117 mg/dl; Hemoglobin A1C 5.7 % (4.5-5.6)
--- NOTE | 2020-11-07 19:00 | History & Physical Report ---
Date of Service November 07, 2020 Assessment & Plan (1) Primary osteoarthritis of right knee: Treatment options discussed with patient. She has failed conservative measures as above and would like to proceed with surgery. Risks, benefits and alternatives to surgery including but not limited to infection, DVT, pain, stiffness, need for revision surgery, damage to blood vessels, damage to nerves, PE, , were discussed with the patient and they wish to proceed. Plan for right total knee arthroplasty at [facility] on 11/09/[address] Chang. Will plan on HHPT post d/c from the hospital. Will plan on ASA 81mg BID x 1 mo post op for DVT prophylaxis. All questions answered. F/u post operatively. History of Present Illness Chief Complaint: Right knee pain Primary Care Provider: Miguel Sorensen, 59 year old female with PMHx significant for hypothyroidism and asthma presents with ongoing right knee pain. Previously has had left TKA and has done well. Her pain is interfering with her ability to carry out normal daily and leisure activity. She has failed conservative measures including anti-inflammatories and injections. She would like to proceed with right knee replacement. Patient denies headaches, sweats, fevers, chills, double vision, blurred vision, cough, sore throat, dysphagia, chest pain, sob, wheezing, n/v/d/c, numbness, tingling, fatigue, urinary symptoms, mood disorders. ROS positive for right knee pain and stiffness. Allergies Allergy/AdvReac Type Severity Reaction Status Date / Time No Known Allergies Allergy Verified 09/29/20 08:32 Home Medications Medication Instructions Recorded Confirmed Type cholecalciferol (vitamin D3) 50 mcg PO QAM 01/17/20 09/29/20 History [Vitamin D3] coenzyme Q10 [Co Q-10] 200 mg PO QAM 01/17/20 09/29/20 History cyanocobalamin (vitamin B-12) 1,000 mcg PO UD 01/17/20 09/29/20 History [Vitamin B-12] levothyroxine 125 mcg PO QAM 01/17/20 09/29/20 History multivitamin 1 cap PO BID 01/17/20 09/29/20 History albuterol sulfate 1 inh INHALATION UD PRN 09/29/20 09/29/20 History sennosides [Senokot] 17.2 mg PO UD PRN 09/29/20 09/29/20 History Past Med/Surg History Medical History Chronic cough chronic cough with "cold weather" > inhaler PRN (no issues since Fall 2019) Degenerative disc disease lumbar Hiatal hernia small History of pericarditis 10+ years ago > heart cath done (was normal), symptoms resolved with colchicine (since discontinued), no issues x several years Hypothyroidism Morbid obesity Surgical History History of total left knee replacement Hx of abdominal surgery Abdominoplasty (fall after surgery > abdominal injury) Hx of appendectomy Hx of arthroscopy of right knee Hx of cardiac cath Due to pericarditis ([facility] 10+ years ago) > no stents Hx of cholecystectomy with adhesions Hx of colonoscopy Hx of gastric bypass 20 years ago Hx of laparoscopy Several Hx of total hysterectomy Family History Father Family history of diabetes mellitus Grandfather (Maternal) Family history of diabetes mellitus Grandfather (Paternal) Family history of diabetes mellitus Grandmother (Paternal) Family history of diabetes mellitus Grandmother (Maternal) Family history of diabetes mellitus Social History Smoking Status: Never smoker Second Hand Exposure: No; Do You Dip or Chew Tobacco: No; Hx Alcohol Use: No Hx Substance Use: No Preferred Language: Peruvian Communication Ability: Effective Wet Crown Blocking Operator Required: No Beliefs That Will Affect Care: None Current Living Situation: Spouse Other Information That Helps Us Care for You: No Feels Safe at Home: Yes Assistive Devices: Glasses Review of Systems All systems reviewed & are unremarkable except as noted in HPI & below Physical Exam Constitutional: well developed and well nourished; no acute distress Eyes: PERRL, conjunctivae normal, anicteric sclerae ENMT: external ear and nose normal, oropharynx normal Neck: trachea midline, no thyromegaly Respiratory: normal respiratory effort, lungs clear to auscultation Cardiovascular: RRR, no murmur, no edema Musculoskeletal: Right knee: Valgus alignment, mild effusion. Diffuse tenderness. Moderate crepitus with motion. Positive Bernadette's. Stable to valgus and varus stress test. ROM 15-110 degrees. Skin: no rashes, warm and dry Neurologic: patellar DTR's 2+ bilat, sensation intact Psychiatric: A+Ox3, euthymic affect Results & Data ([facility]) Laboratory Results Lab Results 10/12/20 10/12/20 10/12/20 Range/Units 14:52 14:52 14:52 WBC 5.70 (4.8-10.8) K/uL RBC 4.68 (4.2-5.4) M/uL Hgb 13.5 (12.0-16.0) g/dL Hct 40.7 (37-47) % MCV 87.0 (80-100) fL MCH 28.8 (25-34) pg MCHC 33.2 (32-36) g/dL RDW Std Deviation 42.5 (36.4-46.3) fL RDW Coeff of Ivonne 13.4 (11.5-14.5) % Plt Count 332 (130-400) K/uL MPV 9.7 (7.4-10.4) fL Immature Gran % (Auto) 0.2 % Neut % (Auto) 60.8 % Lymph % (Auto) 27.0 % Dane % (Auto) 9.8 % Eos % (Auto) 1.8 % Baso % (Auto) 0.4 % Neut # (Auto) 3.47 (1.4-6.5) K/uL Lymph # (Auto) 1.54 (1.2-3.4) K/uL Dane # (Auto) 0.56 (0.11-0.59) K/uL Eos # (Auto) 0.10 (0-0.5) K/uL Baso # (Auto) 0.02 (0-0.2) K/uL Immature Gran # (Auto) 0.01 (0.00-0.02) K/uL PT 10.3 (9.0-12.0) Seconds INR 1.0 (0.9-1.1) APTT 25.7 (21.0-31.0) Seconds PTT Ratio 1.0 Sodium (136-145) mmol/L Potassium (3.5-5.1) mmol/L Chloride (98-107) mmol/L Carbon Dioxide (21-32) mmol/L Anion Gap (3-11) BUN (7-18) mg/dl Creatinine (0.6-1.2) mg/dl Est Cr Clr Drug Dosing ml/min Est GFR ( Amer) Est GFR (Non-Af Amer) BUN/Creatinine Ratio (10-20) Glucose (70-99) mg/dl Estimat Average Glucose mg/dl Hemoglobin A1c (4.5-5.6) % Calcium (8.5-10.1) mg/dl Albumin (3.4-5.0) gm/dl Urine Color Urine Appearance (Clear) Urine pH (4.5-7.5) Ur Specific Bellamy (1.000-1.030) Urine Protein (Negative) Urine Glucose (UA) (Negative) Urine Ketones (Negative) Urine Blood (Negative) Urine Nitrite (Negative) Urine Bilirubin (Negative) Urine Urobilinogen (Negative) Ur Leukocyte Esterase (Negative) Urine WBC (Auto) (0-5) /hpf Urine RBC (Auto) (0-4) /hpf U Hyaline Cast (Auto) (0-5) /lpf U Epithel Cells (Auto) (0-5) /lpf Urine Bacteria (Auto) (Negative) Ur Renal Epithelial Cell Urine Mucus (None Prsent) Blood Type A Negative Antibody Screen NEGATIVE 10/12/20 10/12/20 10/12/20 Range/Units 14:52 14:52 14:52 WBC (4.8-10.8) K/uL RBC (4.2-5.4) M/uL Hgb (12.0-16.0) g/dL Hct (37-47) % MCV (80-100) fL MCH (25-34) pg MCHC (32-36) g/dL RDW Std Deviation (36.4-46.3) fL RDW Coeff of Ivonne (11.5-14.5) % Plt Count (130-400) K/uL MPV (7.4-10.4) fL Immature Gran % (Auto) % Neut % (Auto) % Lymph % (Auto) % Dane % (Auto) % Eos % (Auto) % Baso % (Auto) % Neut # (Auto) (1.4-6.5) K/uL Lymph # (Auto) (1.2-3.4) K/uL Dane # (Auto) (0.11-0.59) K/uL Eos # (Auto) (0-0.5) K/uL Baso # (Auto) (0-0.2) K/uL Immature Gran # (Auto) (0.00-0.02) K/uL PT (9.0-12.0) Seconds INR (0.9-1.1) APTT (21.0-31.0) Seconds PTT Ratio Sodium 142 (136-145) mmol/L Potassium 4.1 (3.5-5.1) mmol/L Chloride 110 H (98-107) mmol/L Carbon Dioxide 27 (21-32) mmol/L Anion Gap 5.0 (3-11) BUN 14 (7-18) mg/dl Creatinine 0.80 (0.6-1.2) mg/dl Est Cr Clr Drug Dosing 106.7 ml/min Est GFR ( Amer) 93.5 Est GFR (Non-Af Amer) 80.7 BUN/Creatinine Ratio 17.1 (10-20) Glucose 108 H (70-99) mg/dl Estimat Average Glucose 117 mg/dl Hemoglobin A1c 5.7 H (4.5-5.6) % Calcium 8.4 L (8.5-10.1) mg/dl Albumin 3.2 L (3.4-5.0) gm/dl Urine Color Dark Yellow Urine Appearance Clear (Clear) Urine pH 5.0 (4.5-7.5) Ur Specific Bellamy 1.033 H (1.000-1.030) Urine Protein Negative (Negative) Urine Glucose (UA) Negative (Negative) Urine Ketones Trace H (Negative) Urine Blood Negative (Negative) Urine Nitrite Negative (Negative) Urine Bilirubin Negative (Negative) Urine Urobilinogen Negative (Negative) Ur Leukocyte Esterase 2+ H (Negative) Urine WBC (Auto) >30 H (0-5) /hpf Urine RBC (Auto) 5-10 H (0-4) /hpf U Hyaline Cast (Auto) 10-30 H (0-5) /lpf U Epithel Cells (Auto) >30 H (0-5) /lpf Urine Bacteria (Auto) 1+ H (Negative) Ur Renal Epithelial Cell Not Reportable Urine Mucus Present A (None Prsent) Blood Type Antibody Screen Diagnostic Findings Right knee: Tricompartmental degenerative changes. Valgus alignment. Significant arthritic change lateral compartment. Severe arthritic change PF compartment with bone on bone articulation.
[2020-11-09] MEDS: ACETAMINOPHEN 500 MG TAB PO SCH ×4 (05:45→22:40)
[2020-11-09] MEDS: METOCLOPRAMIDE HCL 10 MG TABLET PO SCH ×2 (05:45→06:43)
[2020-11-09] MEDS: FAMOTIDINE 20 MG TAB PO SCH ×2 (05:46→06:43)
[2020-11-09] MEDS ORDERED: dexAMETHasone 4 MG TAB PO SCH (06:00)
[2020-11-09] MEDS ORDERED: ROPIVACAINE 0.5% HCL/PF 150 MG, BUPIVACAINE 0.75% MPF 20 ML, EPINEPHrine 30MG/30ML (OR ... INSTIL SCH (06:00)
[2020-11-09] MEDS ORDERED: GABAPENTIN 600 MG DOSE PO SCH (06:00)
[2020-11-09] MEDS ORDERED: TRANEXAMIC ACID 1,000 MG **IV Intra-op IV SCH (06:00)
[2020-11-09] MEDS ORDERED: LR 500ML BOLUS, THEN 15ML/HR IV SCH (06:00)
[2020-11-09] MEDS ORDERED: CeleBREX 200 MG CAP PO SCH (06:00)
[2020-11-09] MEDS ORDERED: TRANEXAMIC ACID 1,000 MG **IV Pre-op IV SCH (06:00)
[2020-11-09] MEDS ORDERED: BUPIVACAINE 0.25% 30 ML VIAL ONE (06:30)
[2020-11-09] MEDS ORDERED: EPINEPHrine INJ 1 MG/ML AMP ONE (06:30)
[2020-11-09] MEDS ORDERED: DEXAMETHASONE SOD INJ 4 MG/ML VIAL ONE (06:30)
[2020-11-09] MEDS ORDERED: BUPIVACAINE 0.5 % 5 MG/1 ML PF 10ML VIAL ONE (06:30)
[2020-11-09] MEDS ORDERED: MIDAZOLAM HCL 1 MG/ML 2ML VIAL ONE ×2 (06:37)
[2020-11-09] MEDS ORDERED: BACITRACIN INJ 50,000 UNIT VIAL ONE (06:37)
[2020-11-09] MEDS ORDERED: ORTHO JOINT ANESTHETIC ONE (06:37)
[2020-11-09] MEDS ORDERED: LIDOCAINE HCL 2% 2 ML VIAL/AMP(20MG/ML) INFIL ONE (06:37)
[2020-11-09] MEDS ORDERED: PROPOFOL IV EMULSION 10 MG/ML 20 ML VIAL IV ONE (06:37)
[2020-11-09 06:38] LABS: Influenza A virus by PCR Negative (Neg); Influenza B virus by PCR Negative (Neg); RSV by PCR Negative (Neg); SARS CoV2 RNA(COVID-19) InHosp NEGATIVE (Negative)
[2020-11-09] MEDS ORDERED: ePHEDrine sulfate 50 MG/ML AMP IV PRN (06:51)
[2020-11-09] MEDS ORDERED: ATROPINE SULFATE 0.1 MG/ML 10ML SYR IV PRN (06:51)
[2020-11-09] MEDS ORDERED: fentaNYL citrate 100 MCG/2 ML VIAL IV PRN (06:51)
[2020-11-09] MEDS ORDERED: ONDANSETRON INJ 2 MG/ML 2 ML VIAL IV PRN ×2 (06:51→10:52)
--- NOTE | 2020-11-09 06:58 | History & Physical Bridge Note ---
Date of Service November 09, 2020 History & Physical Bridge Note I have examined the patient, reviewed the History & Physical and in the interval since the performance of the History & Physical I have noted the following changes of clinical significance: no changes noted
[2020-11-09] MEDS ORDERED: ONDANSETRON INJ 2 MG/ML 2 ML VIAL ONE (08:46)
[2020-11-09] MEDS ORDERED: PHENYLEPHRINE 100MCG/ML 5ML SYR ONE (08:51)
--- NOTE | 2020-11-09 09:36 | Post Operative Brief Note ---
Immediate Post Op Note v1 Date of Surgery November 09, 2020 Pre & Post Diagnosis Operation Date: 11/09/20 07:00 Pre-Op Diagnosis: Unilateral Primary Osteoarthritis, Right Knee, morbid obesity Post-Op Diagnosis: Unilateral Primary Osteoarthritis, Right Knee, morbid obesity I identified the patient and participated in the time-out.: Yes Procedure Operation Date: 11/09/20 07:00 Actual Procedures p Right Total Knee Arthroplasty(Right), superficial wound VAC, increased difficulty morbid obesity BMI 51.7- Shree Chang MD Surgeon Shree Chang MD Assistant Men'S Lacrosse Coach Romeo RIGGINS Estimated Blood Loss 5 Findings Consistent with Post-Op Diagnosis Specimens Bone cuts Drains Hemovac Drain Anesthesia Type MAC Spinal Regional Complications none Disposition Accompanied Patient To Recovery: No Disposition: Recovery Room Overlapping Procedure I was immediately available: during the entire case.
--- NOTE | 2020-11-09 09:46 | Operative Report ---
Post Operative Report Pre & Post Diagnosis Operation Date: 11/09/20 07:00 Pre-Op Diagnosis: Unilateral Primary Osteoarthritis, Right Knee, morbid obesity BMI 51.7 Post-Op Diagnosis: Unilateral Primary Osteoarthritis, Right Knee, morbid obesity BMI 51.7 I identified the patient and participated in the time-out.: Yes Procedure Operation Date: 11/09/20 07:00 Actual Procedures p Right Total Knee Arthroplasty(Right), superficial wound VAC, increased difficulty BMI 51.7- Shree Chang MD Surgeon Shree Chang MD Senior Hadoop Developer Romeo RIGGINS Estimated Blood Loss 5 Findings Consistent with Post-Op Diagnosis Specimens Bone cuts Drains 2 Hemovac Anesthesia Type MAC Spinal Regional Complications none Disposition Accompanied Patient To Recovery: No Disposition: Recovery Room Indications 60-year-old female with severe osteoarthritis of the right knee. She has had a previous left knee replacement with good result. Right knee is valgus and tricompartmental osteoarthritis severe [id number] in the patellofemoral joint with bone loss of patella. Description of Procedure Patient was taken to the operating room placed supine on the operating table and anesthetized under spinal MAC regional anesthesia. Exam under anesthesia demonstrated valgus knee some MCL laxity severe patellofemoral crepitation with lateral aligned patella. A pneumatic tourniquet was placed about the very obese thigh of the right lower extremity. The right lower extremity was prepped and draped in usual fashion. The leg was elevated exsanguinated with an Esmarch bandage and the pneumatic was raised to 350 mm mercury. An anterior incision was made across the right knee. The skin was incised longitudinally subcutaneou s flaps were elevated and an incision was made through the medial retinaculum extending up into the mid third of the quadriceps tendon and extended down to the medial tibial tubercle. Intra-articular findings demonstrated tricompartmental osteoarthritis advanced all compartments with [id number] patella with bone loss patella, several loose bodies, degenerated ACL.. The knee was exposed by excising the infrapatellar fat pad, excising the meniscal remnants and anterior cruciate ligament. Any inflamed synovial tissue was resected. The fat pad over the anterior femur was resected for placement of the component in that area. The femur was exposed. The intramedullary drill hole was made into the femur and the alignment guide was placed at 5 degrees valgus. The distal femoral cutting block was applied and pinned in position. The distal femoral cut was made with the oscillating saw. The femoral sizing guide was applied and drill holes were placed 3 degrees of external rotation to match epicondylar axis. The size 9, 4-in-1 cutting block was placed. The anterior and posterior chamfer cuts were made. The knee was extended and a subperiosteal peel lateral release was performed around the patella. The patella width was measured and width was reproduced using freehand cut technique. The 35 x 9 millimeter symmetrical patella was used. 3 drill holes are made for the pegs. There were some subchondral cysts in the bone that were curetted with an angled curette. The tibia was exposed. An exterior tibial cutting guide was placed adjusted for alignment to make a perpendicular cut along exit the tibia and adjusted for slope. the proximal cut was made with the oscillating saw. All osteophytes were resected. The lamina finance assistant was used to assess ligamentous balance and the ligaments were balanced in extension and flexion. He did some lateral capsule release minor IT band release was all required to balance ligaments well. The tibia was reexposed and measured for a size E tibial component. This was externally rotated in line with the tibial tubercle and the fixation pins were drilled. The proximal tibia was fashioned with the drill and punch. The size 9 CR femoral trial was inserted. The trial MC inserts were used. The 10 mm insert gave balanced ligaments through full range of motion. The patella tracked centrally. the trials were removed. The orthomix anesthetic cocktail was injected per protocol. The knee was then copiously irrigated with pulsatile lavage antibiotic solution with bacitracin. The final components were cemented with Simplex cement. The final components were persona [employer] right CR size 9 narrow femoral component, E right tibia, a short stem applied to the tibial component, 10 MC polyethylene for tibia, 35 x 9 symmetrical patella. After the cement cured with the knee in full extension the Betadine soak was used per protocol. The knee joint was copiously irrigated with antibiotic solution with bacitracin. 2 drains were brought out laterally and connected to a Hemovac. The quadriceps tendon and medial retinaculum were closed with interrupted [id number] #1 Vicryl sutures. The knee was taken through a full range of motion and repair was secure. Patient had 0 through 125 degrees range of motion when her calf met her thigh. The subcutaneous tissues were closed with 2-0 Vicryl sutures and skin was closed with brittany. A Carmella superficial wound VAC applied and the patient tolerated the procedure well. There was increased difficulty in the procedure due to her morbid obesity BMI 51.7 adding least 25 minutes to the time length of surgery. Romeo RIGGINS my physician administrative support assistant, assisted in soft tissue retraction instrument management leg positioning the closure and will participate in the postoperative care of the patient. I attest to the content of the Intraoperative Record and any orders documented therein. Any exceptions are noted below.
--- NOTE | 2020-11-09 10:03 | XRay Report ---
RIGHT KNEE 2 VIEWS History: Right total knee arthroplasty. Degenerative arthritis. Postop. FINDINGS: The patient is status post a right total knee arthroplasty. The hardware is intact. No frac ture or dislocation. Skin brittany and surgical drains are in place. IMPRESSION: Right total knee arthroplasty. No evidence for hardware complication. ACT 112: Negative or not required by law. Electronically signed by: Ankit Calvert M.D. 11/09/2020 10:02 AM
--- NOTE | 2020-11-09 10:03 | Anesthesiology Progress Note ---
Date of Service November 09, 2020 Anesthesia Post Procedure Vital Signs Vital Signs: Temp Pulse Pulse Resp BP BP Pulse Ox 11/09/20 09:50 76 16 121/72 97 11/09/20 09:40 75 20 98/62 L 97 11/09/20 09:36 36.3 C L 80 21 100/63 94 11/09/20 06:10 36.8 C 97 H 18 168/93 H 99 Pain Intensity Generalized: Pain Intensity: 0 Transfer of Care Handoff Completed per policy Notes Mental Status: alert / awake / arousable Patient Amnestic to Procedure: Yes Nausea / Vomiting: adequately controlled Pain: adequately controlled Airway Patency, RR, SpO2: stable & adequate BP & HR: stable & adequate Hydration State: stable & adequate Neuraxial Anesthesia: was administered and sensory block is resolving Anesthetic Complications: no major complications apparent and Pt Satisfied with anesthetic care
[2020-11-09] MEDS ORDERED: METOCLOPRAMIDE HCL INJ 5 MG/ML 2 ML VIAL IV PRN (10:52)
[2020-11-09] MEDS ORDERED: MAGNESIUM HYDROXIDE SUSP 30 ML UDC PO PRN (10:52)
[2020-11-09] MEDS ORDERED: bisacodyL 10 MG SUPP PR PRN (10:52)
[2020-11-09] MEDS ORDERED: ALBUTEROL HFA 8 GM INHALER INH PRN (10:52)
[2020-11-09] MEDS ORDERED: SENNA 8.6 MG TAB PO PRN (10:52)
[2020-11-09] MEDS ORDERED: HYDROmorphone INJ 0.5 MG/0.5 ML SYR IV PRN (10:52)
[2020-11-09] MEDS ORDERED: NALOXONE HCL 0.4 MG/1 ML VIAL/CARP IV PRN (10:52)
--- NOTE | 2020-11-09 12:10 | Hospitalist Consultation ---
Date of Consultation November 09, 2020 Assessment & Plan (1) Primary osteoarthritis of right knee: Patient status post right knee TKA - Pain controlled- adequate tiering of medications - NSAID and ASA - placed on Famotidine PO daily, consider continuing while on dual agents - PT/OT per primary team - Hemovac drain with small amount of serous sang drainage- Drain per primary team - Postoperative ABX per primary team - Appropriate multi-tiered approach for stool softeners/laxatives- no additions at this time (2) Hypothyroidism: No acute needs at this time - TSH with reflex T4 ordered for morning - Continue home levothyroxine 125 mcg (3) Obesity: Patient with history of gastric bypass- and with limited physical activity with OA of her knees - Continue to manage other co-morbids - lipid panel sent in the morning- not on any lipid lowering medications - Consider adding daily aspirin for primary prevention - HGB a1C pre-op 5.9 - BP with in goal <140 on no outpatient medications - No CPAP as home use- follow with sedating medications- Her HCO3 is at 27 which may preclude some obesity hypoventilation-- would need ABG for diagnosis - Check B12 and Thiamine levels in the morning as well- with gastric bypass history (4) Cough variant not due to asthma: Patient reports albuterol inhaler since last fall for cough with cold and spring ? allergies - uses it 1-2 times per day which relieves her cough - No history of asthma or other restrictive/obstructive pulmonary disease - Continue while in house (5) Vitamin D deficiency, unspecified: Check OH level in the morning - No acute needs (6) DVT prophylaxis: SCD's and ASA 81mg BID per the primary team. Supervising Physician Co-Signing Physician Notes During my face to face encounter, I obtained a history and physical examination. I reviewed above note and agree with it. I discussed plan of care with patient and TRISTAN Correia. I answered all of the patient's questions. Consulted for medical management. will resume home meds for hypothyroidism. History of Present Illness Attending Physician: Shree Chang MD History of Present Illness 60 YOF with past medical/surgical of gastric bypass 2000, abdominal plasty 2002, lysis of adhesions with EX-laps x3, cardiac catheterization which showed per icarditis 2005, TKA 02/09, obesity, hypothyroidism with benign nodular goiter, Vitamin D deficiency, HLD, chronic cough, and UTI recently completed course of Bactrim early in the month with resulting UCX negative per review. Patient has history of chronic abdominal pain with lysis of adhesions and occasional constipation. She also has a history of traumatic fracture injury to her right leg (when she was younger) with valgus deformity and knee pain. Patient was admitted for arthroplasty TKA of the right knee which was performed today. Patient was assessed postoperatively in her room. She is awake, no nausea, pain is controlled, she is tolerating sips of water and is on room air. Overall appears comfortable and ready to participate in her care and rehab. Allergies Allergy/AdvReac Type Severity Reaction Status Date / Time No Known Allergies Allergy Verified 11/09/20 05:35 Home Medications Medication Instructions Recorded Confirmed Type cholecalciferol (vitamin D3) 50 mcg PO QAM 01/17/20 11/09/20 History [Vitamin D3] coenzyme Q10 [Co Q-10] 200 mg PO QAM 01/17/20 11/09/20 History cyanocobalamin (vitamin B-12) 1,000 mcg PO UD 01/17/20 11/09/20 History [Vitamin B-12] levothyroxine 125 mcg PO QAM 01/17/20 11/09/20 History multivitamin 1 cap PO BID 01/17/20 11/09/20 History albuterol sulfate 1 inh INHALATION UD PRN 09/29/20 11/09/20 History sennosides [Senokot] 17.2 mg PO UD PRN 09/29/20 11/09/20 History acetaminophen 1,000 mg PO Q8 14 Days #84 tab 11/10/20 Rx aspirin 81 mg PO BID 30 Days #60 tab 11/10/20 Rx celecoxib [Celebrex] 200 mg PO BID 14 Days #28 cap 11/10/20 Rx oxycodone 5 - 10 mg PO .Q4h-6h PRN #30 tab 11/11/20 Rx MDD 6 Patient History Medical History (Updated 11/10/20 @ 11:14 by Ally Gtz MD) Abdominal adhesions Chronic cough chronic cough with "cold weather" > inhaler PRN (no issues since Fall 2019) Degenerative disc disease lumbar Hiatal hernia small History of pericarditis 10+ years ago > heart cath done (was normal), symptoms resolved with colchicine (since discontinued), no issues x several years Hypothyroidism Morbid obesity Surgical History History of total left knee replacement Hx of abdominal surgery Abdominoplasty (fall after surgery > abdominal injury) Hx of appendectomy Hx of arthroscopy of right knee Hx of cardiac cath Due to pericarditis ([facility] 10+ years ago) > no stents Hx of cholecystectomy with adhesions Hx of colonoscopy Hx of gastric bypass 20 years ago Hx of laparoscopy Several Hx of total hysterectomy Family History Father Family history of diabetes mellitus Grandfather (Maternal) Family history of diabetes mellitus Grandfather (Paternal) Family history of diabetes mellitus Grandmother (Paternal) Family history of diabetes mellitus Grandmother (Maternal) Family history of diabetes mellitus Social History Smoking Status: Never smoker Second Hand Exposure: No; Hx Alcohol Use: No Hx Substance Use: No Preferred Language: Kazakh Communication Ability: Effective Jig And Fixture Maker Required: No Beliefs That Will Affect Care: None marital status: Current Living Situation: Spouse Feels Safe at Home: Yes Assistive Devices: None Review of Systems Review of Systems: REVIEW OF SYSTEMS: Constitutional: No fever, sweats or chills Eyes: No diplopia, no worsening or blurred vision ENT: normal hearing, no trouble swallowing Respiratory: (+) cough, (-) sputum, dyspnea at rest or on exertion Cardiovascular: No chest pain, tightness or palpitations Abdomen: (+) chronic abdominal pain, occasional constipation (-) nausea, vomiting, diarrhea or Musculoskeletal: (+) knee joint pain, (-) calf pain, swelling Neurologic: No weakness, numbness/tingling, or balance problems. uses walker/cane at home as needed Psychiatric: No anxiety or depression Skin: No rash or itch Physical Exam Physical Exam: PHYSICAL EXAM: General: awake, alert, no apparent distress Head: Normocephalic, atraumatic ENT: PERRL, EOMI, no pharyngeal exudate, mucous membranes moist Neuro: AAO x 3, speech clear and appropriate, strength intact bilaterally 5/5, sensation intact and equal all extremities and dermatomes, full sensation to right leg and knee, Chest: equal rise and fall of the chest, no accessory muscle use, no heaves or thirlls, Clear to auscultation, on room air, Cardiac: Regular rate and rhythm, pre-op ECG reviewed, skin warm dry, cap refi ll <3 seconds, peripheral pulses +2 no JVD, no murmur, no edema GI: hypoactive bowel sounds in all 4 quadrants, soft, nontender to palpation, no rebound, guarding or tenderness : has not voided postoperative, Extremities: Normal inspection, no peripheral edema or erythema, calfs nontender to palpation Psych: Normal mood and affect Skin: no rash or erythema Results & Data Results & Data ([facility]) Vital Signs (Past 12 Hours) Vital Signs Temp Pulse Pulse Resp BP BP Pulse Ox 11/09/20 11:15 70 16 153/89 H 94 11/09/20 10:30 79 18 135/85 94 11/09/20 10:20 36.3 C L 75 12 139/82 94 11/09/20 10:10 76 16 135/74 94 11/09/20 10:00 80 17 131/79 94 11/09/20 09:50 76 16 121/72 97 11/09/20 09:40 75 20 98/62 L 97 11/09/20 09:36 36.3 C L 80 21 100/63 94 11/09/20 06:10 36.8 C 97 H 18 168/93 H 99 Laboratory Results No recent labs for review. Diagnostic Findings RIGHT KNEE 2 VIEWS History: Right total knee arthroplasty. Degenerative arthritis. Postop. FINDINGS: The patient is status post a right total knee arthroplasty. The hardware is intact. No fracture or dislocation. Skin brittany and surgical drains are in place. IMPRESSION: Right total knee arthroplasty. No evidence for hardware complication. Medications Administered Acetaminophen (Acetaminophen 500 Mg Tab) 1,000 mg PO PREOP JEWEL Stop: 11/09/20 18:00 Last Admin: 11/09/20 06:42 Dose: Not Given Documented by: [id number] Celecoxib (Celebrex 200 Mg Cap) 200 mg PO PREOP JEWEL Stop: 11/09/20 18:00 Last Admin: 11/09/20 05:45 Dose: 200 mg Documented by: [id number] Dexamethasone (Dexamethasone 4 Mg Tab) 8 mg PO PREOP JEWEL Stop: 11/09/20 18:00 Last Admin: 11/09/20 05:46 Dose: 8 mg Documented by: [id number] Famotidine (Famotidine 20 Mg Tab) 20 mg PO PREOP JEWEL Stop: 11/09/20 18:00 Last Admin: 11/09/20 06:43 Dose: Not Given Documented by: [id number] Gabapentin (Gabapentin 600 Mg Dose) 600 mg PO PREOP JEWEL Stop: 11/09/20 18:00 Last Admin: 11/09/20 05:46 Dose: 600 mg Documented by: [id number] Lactated Ringer's (Lr) 1,000 mls @ 15 mls/hr IV .Q24H JEWEL Stop: 11/09/20 18:00 Last Infusion: 11/09/20 07:19 Dose: 0 mls/hr Documented by: [id number] Admin: 11/09/20 05:43 Dose: 15 mls/hr Documented by: [id number] Cefazolin Sodium (Ancef 3000mg) 72.5 mls @ 130 mls/hr IV PREOP JEWEL; Protocol Stop: 11/09/20 18:00 Last Admin: 11/09/20 11:08 Dose: Not Given Documented by: [id number] Tranexamic Acid (Tranexamic Acid / 0.7% Nacl) 1,000 mg in 100 mls @ 600 mls/hr IV TODAY@0600 JEWEL Stop: 11/09/20 18:00 Last Infusion: 11/09/20 07:12 Dose: 0 mls/hr Documented by: [id number] Admin: 11/09/20 07:01 Dose: 600 mls/hr Documented by: [id number] Tranexamic Acid (Tranexamic Acid / 0.7% Nacl) 1,000 mg in 100 mls @ 600 mls/hr IV TODAY@0600 JEWEL Stop: 11/09/20 18:00 Last Infusion: 11/09/20 11:08 Dose: 0 mls/hr Documented by: [id number] Admin: 11/09/20 09:20 Dose: 600 mls/hr Documented by: [id number] Metoclopramide HCl (Metoclopramide Hcl 10 Mg Tablet) 10 mg PO PREOP JEWEL Stop: 11/09/20 18:00 Last Admin: 11/09/20 06:43 Dose: Not Given Documented by: [id number] Discontinued Medications Bacitracin (Bacitracin Inj 50,000 Unit Vial) Confirm Administered Dose 50,000 units .ROUTE .STK-MED ONE Stop: 11/09/20 06:38 Last Admin: 11/09/20 08:58 Dose: 50,000 units Documented by: [id number] Ropivacaine 150 mg/Bupivacaine HCl 20 ml/Epinephrine HCl 0.15 mg/Ketorolac Tromethamine 30 mg/Dexamethasone 4 mg/ Ketamine HCl 10 mg/ Clonidine HCl 100 mcg/ Sodium Chloride 88.35 mls @ 0 mls/hr INSTIL TODAY@0600 REPLACED BY [facility]; Protocol Stop: 11/09/20 06:01 Last Admin: 11/09/20 08:58 Dose: 93.35 mls/hr Documented by: [id number] Miscellaneous (Ortho Joint Anesthetic ) Confirm Administered Dose 1 ea .ROUTE .STK-MED ONE Stop: 11/09/20 06:38 Last Admin: 11/09/20 08:58 Dose: Not Given Documented by: [id number] Home Medications cholecalciferol (vitamin D3) [Vitamin D3] 50 mcg PO QAM 01/17/20 [History Confirmed 11/09/20] coenzyme Q10 [Co Q-10] 200 mg PO QAM 01/17/20 [History Confirmed 11/09/20] cyanocobalamin (vitamin B-12) [Vitamin B-12] 1,000 mcg PO UD 01/17/20 [History Confirmed 11/09/20] levothyroxine 125 mcg PO QAM 01/17/20 [History Confirmed 11/09/20] multivitamin 1 cap PO BID 01/17/20 [History Confirmed 11/09/20] albuterol sulfate 1 inh INHALATION UD PRN 09/29/20 [History Confirmed 11/09/20] sennosides [Senokot] 17.2 mg PO UD PRN 09/29/20 [History Confirmed 11/09/20] Active Medications Acetaminophen (Acetaminophen 500 Mg Tab) 1,000 mg PO Q8 REPLACED BY [facility] Stop: 12/09/20 13:59 Albuterol (Albuterol Hfa 8 Gm Inhaler) 1 puffs INH Q4H PRN PRN Reason: COLD WEATHER COUGH Stop: 12/09/20 10:51 Aspirin (Aspirin 81 Mg Ectab) 81 mg PO BID JEWEL Stop: 12/09/20 20:59 Bisacodyl (Bisacodyl 10 Mg Supp) 10 mg IA DAILY PRN PRN Reason: Constipation Stop: 12/09/20 10:51 Documented by: Celecoxib (Celebrex 200 Mg Cap) 200 mg PO BID REPLACED BY [facility] Stop: 12/09/20 20:59 Cyanocobalamin (Cyanocobalamin 500 Mcg Tablet (Vitamin B-12)) 1,000 mcg PO DAILY REPLACED BY [facility] Stop: 12/10/20 08:59 Docusate Sodium (Docusate Sodium 100 Mg Cap) 100 mg PO BID REPLACED BY [facility] Stop: 12/09/20 20:59 Hydromorphone HCl (Hydromorphone Inj 0.5 Mg/0.5 Ml Syr) 0.5 mg IV Q4H PRN PRN Reason: Pain or Pre PT Stop: 11/23/20 10:51 Sodium Chloride (Nss 1000ml) 1,000 mls @ 100 mls/hr IV .Q10H REPLACED BY [facility] Stop: 11/10/20 06:00 Cefazolin Sodium (Ancef 2000mg) 2,000 mg in 15 mls @ 3.75 mls/min IV Q8H REPLACED BY [facility]; Protocol Stop: 11/09/20 23:03 Levothyroxine Sodium (Levothyroxine Sodium 125 Mcg Tablet) [facility] Stop: 12/10/20 06:29 Magnesium Hydroxide (Magnesium Hydroxide Susp 30 Ml Udc) 30 ml PO Q6H PRN PRN Reason: Constipation Stop: 12/09/20 10:51 Metoclopramide HCl (Metoclopramide Hcl Inj 5 Mg/Ml 2 Ml Vial) 10 mg IV Q6H PRN PRN Reason: Nausea And Vomiting Stop: 12/09/20 10:51 Multivitamins (Multivitamin Tab) 1 tab PO QAM REPLACED BY [facility] Stop: 12/10/20 08:59 Naloxone HCl (Naloxone Hcl 0.4 Mg/1 Ml Vial/Carp) 0.1 mg IV Q5M PRN PRN Reason: Oversedation/Resp Depression Stop: 12/09/20 10:51 Ondansetron HCl (Ondansetron Inj 2 Mg/Ml 2 Ml Vial) 4 mg IV Q6H PRN PRN Reason: Nausea And Vomiting Stop: 12/09/20 10:51 Oxycodone HCl (Oxycodone Hcl Ir 5 Mg Tab (Immediate Release)) 5 - 10 mg PO Q4H PRN PRN Reason: Pain or Pre PT Stop: 11/23/20 10:51 Sennosides (Senna 8.6 Mg Tab) 17.2 mg PO HS JEWEL Stop: 12/09/20 20:59 Vitamin D (Cholecalciferol 1,000 Units 25 Mcg Tab) 2,000 units PO QAM JEWEL Stop: 12/10/20 08:59 ECG Additional Comments: Pre-op ECG reviewed NSR normal ECG PG Care Time/CCT Total # of Minutes Spent Total Time Spent with Patient: Total time spent is greater than 50% in coordination of care (as documented) at patient's floor/unit and/or counseling patient: Coding Level of Care Code 49090 Inpt Consult Level 3 Diagnoses Primary osteoarthritis of right knee M17.11 Hypothyroidism E03.8 Hypothyroidism type: other Obesity E66.01; Z68.43 Body mass index: BMI 50.0-59.9 Obesity classification: adult class 3 (BMI >= 40) Obesity type: due to excess calories Serious obesity comorbidity presence: without serious comorbidity Cough variant not due to asthma R05 Vitamin D deficiency, unspecified E55.9 DVT prophylaxis Z29.9 (1) Hypothyroidism Hypothyroidism type: other Qualified Code(s): E03.8 - Other specified hypothyroidism (2) Obesity Body mass index: BMI 50.0-59.9 Obesity classification: adult class 3 (BMI >= 40) Obesity type: due to excess calories Serious obesity comorbidity presence: without serious comorbidity Qualified Code(s): E66.01 - Morbid (severe) obesity due to excess calories; Z68.43 - Body mass index [BMI] 50.0-59.9, adult
[2020-11-09] MEDS: ceFAZolin 2000MG 2,000 MG/15 ML SYR IV SCH ×2 (13:36→22:40)
[2020-11-09] MEDS: SODIUM CHLORIDE 0.9% 1000ML 1,000 ML IV SCH ×2 (13:42→22:40)
[2020-11-09] MEDS: DOCUSATE SODIUM 100 MG CAP PO SCH (20:43)
[2020-11-09] MEDS: ASPIRIN 81 MG ECTAB PO SCH (20:44)
[2020-11-09] MEDS: CeleBREX 200 MG CAP PO SCH (20:44)
[2020-11-09] MEDS: SENNA 8.6 MG TAB PO SCH (20:44)
[2020-11-09] MEDS ORDERED: NON-FORMULARY MEDICATION (Multivitamin Capsule) PO SCH (21:00)
[2020-11-10] MEDS: LEVOTHYROXINE SODIUM 125 MCG TABLET PO SCH (06:04)
[2020-11-10] MEDS: ACETAMINOPHEN 500 MG TAB PO SCH ×3 (06:04→21:46)
[2020-11-10 07:59] LABS: Hematocrit (blood only) 37.5 % (37-47); Hemoglobin 12.5 g/dL (12.0-16.0); Mean Corpuscular Hemoglobin 28.9 pg (25-34); Mean Corpuscular Hgb Conc 33.3 g/dL (32-36); Mean Corpuscular Volume 86.8 fL (80-100); Mean Platelet Volume 9.3 fL (7.4-10.4); Platelet Count 321 K/uL (130-400); RDW Coefficient of Variation 13.3 % (11.5-14.5); RDW Standard Deviation 42.5 fL (36.4-46.3); Red Blood Count 4.32 M/uL (4.2-5.4); White Blood Count 9.83 K/uL (4.8-10.8)
--- NOTE | 2020-11-10 08:16 | Orthopedic Progress Note ---
Date of Service November 10, 2020 Assessment & Plan (1) Primary osteoarthritis of right knee: Postop day 1 PT/OT protocols. Weightbearing as tolerated. DVT prophylaxis-aspirin p.o. twice daily, KIMBERLYs, TRAVIS brown. Pain management as written. Labs pending. DC planning-patient is planning for home health services upon discharge. Admission and Anticipated Discharge Date Admission Date: November 09, 2020 Subjective Postop day 1 Patient sitting up in bed this morning. No complaints. Pain is controlled. States she is feels well. Denies shortness of breath, chest pain, l ightheadedness. Physical Exam Physical Exam: Dressings are clean, dry, and intact. Calves are soft nontend er. Neurovascular is intact. Toes are mobile. She has good dorsiflexion and plantarflexion of the right foot. Minimal drainage from the Hemovac. Results & Data ([facility]) Vital Signs (Past 12 Hours) Vital Signs Temp Pulse Resp BP Pulse Ox 11/10/20 08:01 36.5 C 69 18 124/75 96 11/10/20 03:20 36.5 C 86 22 123/64 94 11/09/20 22:47 36.4 C L 73 18 109/62 93
[2020-11-10] MEDS: MULTIVITAMIN TAB PO SCH (08:24)
[2020-11-10] MEDS: CYANOCOBALAMIN 500 MCG TABLET (VITAMIN B-12) PO SCH (08:24)
[2020-11-10] MEDS: ASPIRIN 81 MG ECTAB PO SCH ×2 (08:24→21:45)
[2020-11-10] MEDS: CHOLECALCIFEROL 1,000 UNITS 25 MCG TAB PO SCH (08:25)
[2020-11-10] MEDS: CeleBREX 200 MG CAP PO SCH ×2 (08:25→21:45)
[2020-11-10] MEDS: FAMOTIDINE 10 MG TABLET PO SCH (08:26)
[2020-11-10] MEDS: DOCUSATE SODIUM 100 MG CAP PO SCH ×2 (08:26→21:45)
[2020-11-10 08:29] LABS: BUN Creatinine Ratio 22.3 (10-20); Calcium 8.4 mg/dl (8.5-10.1); Creatinine Clr Calc Pharmacy 116.8 ml/min; Est GFR (African American) 105.5; Potassium 4.1 mmol/L (3.5-5.1)
[2020-11-10 08:41] LABS: Thyroid Stimulating Hormone 0.475 uIu/ml (0.300-4.500)
[2020-11-10] MEDS ORDERED: NON-FORMULARY MEDICATION (Coenzyme Q10 [Co Q-10] 200 mg Capsule) PO SCH (09:00)
[2020-11-10 10:52] LABS: Act87 Hepatitis C IgG Screen Neg (Neg)
--- NOTE | 2020-11-10 11:12 | Hospitalist Progress Note ---
Date of Service November 10, 2020 Assessment & Plan (1) Primary osteoarthritis of right knee: Patient status post right knee TKA - Pain controlled - PT/OT per primary team - Hemovac drain with small amount of serous sang drainage- Drain per primary team - Postoperative ABX per primary team - Appropriate multi-tiered approach for stool softeners/laxatives-add MiraLAX daily Postoperative hemoglobin only down to 12.5, hemodynamically stable (2) Hypothyroidism: No acute needs at this time - TSH is normal - Continue home levothyroxine 125 mcg (3) Obesity: Patient with history of gastric bypass- and with limited physical activity with OA of her knees - HGB a1C pre-op 5.9 Hemoglobin is normal which suggests that she is nutritionally sufficient Follow-up with PCP (4) Cough variant not due to asthma: Patient reports albuterol inhaler since last fall for cough with cold and spring ? allergies - uses it 1-2 times per day which relieves her cough - No history of asthma or other restrictive/obstructive pulmonary disease - Continue while in house as needed but has not had any issues here so far (5) Vitamin D deficiency, unspecified: Vitamin D level pending - No acute needs (6) Abdominal adhesions: History of multiple abdominal surgeries and lysis of adhesions Has chronic abdominal pain but is no worse than usual Caution with use of opioids No history of bowel obstruction Is passing flatus, no bowel movement yet Add on MiraLAX once daily, continue senna (7) DVT prophylaxis: SCD's and ASA 81mg BID per the primary team. Disposition-continued stay on medical/surgical floor Hospitalist service will sign off at this time as patient is medically stable Admission and Anticipated Discharge Date Admission Date: November 09, 2020 Subjective Patient feeling well today. Has minimal pain in the knee. Denies chest pain or shortness of breath, no nausea or vomiting, is eating very well. She reports a long history of chronic abdominal pain and adhesive disease, but no history of obstructions. She is passing flatus from below but no bowel movement yet. She is aware that opioids can worsen her bowel motility. She was out of bed with physical therapy today. Review of Systems Review of Systems: All systems reviewed & are unremarkable except as noted in HPI & below Physical Exam Constitutional: WD/WN, vitals as above + obese Eyes: + anicteric sclerae Neck: trachea midline, no thyromegaly Respiratory: normal respiratory effort, lungs clear to auscultation Cardiovascular: RRR, no murmur, no edema Chest (Breasts): Chest: normal inspection of chest Gastrointestinal (Abdomen): Inspection/Auscultation: normal bowel sounds; abdomen not distended Percussion/Palpation: + abdomen tender (Very minimal left lower quadrant without guarding or rebound) and abdomen soft; no guarding and abdomen not rigid Musculoskeletal: Extremities: + extremities abnormal to inspection (Right l ower extremity in Earl wrap not removed, N/V/I distally), no cyanosis and no clubbing Skin: no rashes, warm and dry Neurologic: moves all extremities and awake; no focal motor deficits Psychiatric: A+Ox3, euthymic affect Lymphatic: no lymphedema Results & Data Results & Data ([facility]) Vital Signs (Past 12 Hours) Vital Signs Temp Pulse Resp BP Pulse Ox 11/10/20 08:01 36.5 C 69 18 124/75 96 11/10/20 03:20 36.5 C 86 22 123/64 94 Laboratory Results 11/10/20 07:35 11/10/20 07:35 PG Care Time/CCT Total # of Minutes Spent Total Time Spent with Patient: Total time spent is greater than 50% in coordination of care (as documented) at patient's floor/unit and/or counseling patient: Coding Level of Care Code 13520 Subseq Obs Care Lvl 2 Diagnoses Primary osteoarthritis of right knee M17.11 Hypothyroidism E03.8 Hypothyroidism type: other Obesity E66.01; Z68.43 Obesity type: due to excess calories Obesity classification: adult class 3 (BMI >= 40) Serious obesity comorbidity presence: without serious comorbidity Body mass index: BMI 50.0-59.9 Cough variant not due to asthma R05 Vitamin D deficiency, unspecified E55.9 Abdominal adhesions K66.0 DVT prophylaxis Z29.9 (1) Hypothyroidism Hypothyroidism type: other Qualified Code(s): E03.8 - Other specified hypothyroidism (2) Obesity Obesity type: due to excess calories Obesity classification: adult class 3 (BMI >= 40) Serious obesity comorbidity presence: without serious comorbidity Body mass index: BMI 50.0-59.9 Qualified Code(s): E66.01 - Morbid (severe) obesity due to excess calories; Z68.43 - Body mass index [BMI] 50.0-59.9, adult
[2020-11-10] MEDS: POLYETHYLENE (MIRALAX) 17 GM PACK PO SCH (12:26)
[2020-11-10] MEDS: oxyCODONE HCL IR 5 MG TAB (IMMEDIATE RELEASE) PO PRN ×2 (17:50→21:46)
[2020-11-10] MEDS: SENNA 8.6 MG TAB PO SCH (21:46)
[2020-11-11] MEDS: oxyCODONE HCL IR 5 MG TAB (IMMEDIATE RELEASE) PO PRN ×3 (03:26→13:06)
[2020-11-11] MEDS: LEVOTHYROXINE SODIUM 125 MCG TABLET PO SCH (05:27)
[2020-11-11] MEDS: ACETAMINOPHEN 500 MG TAB PO SCH (05:27)
--- NOTE | 2020-11-11 07:05 | Orthopedic Progress Note ---
Date of Service November 11, 2020 Assessment & Plan (1) Primary osteoarthritis of right knee: Postop day 2 PT/OT protocols. Weightbearing as tolerated. DVT prophylaxis-aspirin p.o. twice daily, Kunal, TRAVIS brown. Pain management as written. DC planning-patient is planning for home health services upon discharge. Discharge today. Admission and Anticipated Discharge Date Admission Date: November 09, 2020 Subjective Patient resting in bed comfortably. Pain controlled. Did well with PT yesterday. Denies chest pain, sob, dizziness, n/v/d. Review of Systems Constitutional: as per Subjective / HPI Physical Exam Physical Exam: Right knee dressing is c/d/i. Prevena intact. No calf tenderness. No erythema. Good dorsiflexion, toes mobile. N/v status and sensation intact. Constitutional: well developed and well nourished; no acute distress Results & Data ([facility]) Vital Signs (Past 12 Hours) Vital Signs Temp Pulse Resp BP Pulse Ox 11/10/20 22:23 36.7 C 77 18 124/64 18 L
[2020-11-11] MEDS: DOCUSATE SODIUM 100 MG CAP PO SCH (07:54)
[2020-11-11] MEDS: CeleBREX 200 MG CAP PO SCH (07:54)
[2020-11-11] MEDS: ASPIRIN 81 MG ECTAB PO SCH (07:55)
[2020-11-11] MEDS: MULTIVITAMIN TAB PO SCH (07:55)
[2020-11-11] MEDS: CHOLECALCIFEROL 1,000 UNITS 25 MCG TAB PO SCH (07:55)
[2020-11-11] MEDS: FAMOTIDINE 10 MG TABLET PO SCH (07:55)
[2020-11-11] MEDS: CYANOCOBALAMIN 500 MCG TABLET (VITAMIN B-12) PO SCH (07:55)
[2020-11-11] MEDS: POLYETHYLENE (MIRALAX) 17 GM PACK PO SCH (07:56)
--- NOTE | 2020-11-11 18:51 | Discharge Summary ---
Date of Service November 11, 2020 Admission HPI Per Admitting Provider 59 year old female with PMHx significant for hypothyroidism and asthma presents with ongoing right knee pain. Previously has had left TKA and has done well. Her pain is interfering with her ability to carry out normal daily and leisure activity. She has failed conservative measures including anti-inflammatories and injections. She would like to proceed with right knee replacement. Patient denies headaches, sweats, fevers, chills, double vision, blurred vision, cough, sore throat, dysphagia, chest pain, sob, wheezing, n/v/d/c, numbness, tingling, fatigue, urinary symptoms, mood disorders. ROS positive for right knee pain and stiffness. Admission Exam Per Admitting Provider Constitutional: well developed and well nourished; no acute distress Eyes: PERRL, conjunctivae normal, anicteric sclerae ENMT: external ear and nose normal, oropharynx normal Neck: trachea midline, no thyromegaly Respiratory: normal respiratory effort, lungs clear to auscultation Cardiovascular: RRR, no murmur, no edema Musculoskeletal: Right knee: Valgus alignment, mild effusion. Diffuse tenderness. Moderate crepitus with motion. Positive Bernadette's. Stable to valgus and varus stress test. ROM 15-110 degrees. Skin: no rashes, warm and dry Neurologic: patellar DTR's 2+ bilat, sensation intact Psychiatric: A+Ox3, euthymic affect Principal Diagnosis Right knee osteoarthritis Discharge Exam Right knee dressing is c/d/i. Prevena intact. No calf tenderness. No erythema. Good dorsiflexion, toes mobile. N/v status and sensation intact. Constitutional well developed and well nourished; no acute distress Discharge Data Allergies Allergy/AdvReac Type Severity Reaction Status Date / Time No Known Allergies Allergy Verified 11/09/20 05:35 Consultations 11/05/20 15:48 Consult Hospitalist Routine Procedures Performed Operation Date: 11/09/20 07:00 Actual Procedures p Right Total Knee Arthroplasty(Right) - Shree Chang MD Ordered Studies 11/09/20 07:13 US - OR guided needle placemen Routine Hospital Course (1) Primary osteoarthritis of right knee: Patient presented for same day admission following right total knee arthroplasty on 11/09/20. She tolerated procedure well. The Patient had an uneventful hospital course. Post-operatively, her activity was progressed and well tolerated. They participated in PT with ambulation distance of300 feet x 2. ROM of operative knee reached 80 degrees. Labs remained stable- lowest hemoglobin recorded: 12.[address] Ally Gtz of medical service was consulted for medical management during admission. Pain controlled on oral medications. Please refer to daily progress notes and PT notes for complete details. After exam on 11/11/20, patient was felt to be stable for discharge home with home health PT. Patient will f/u in the office in about 2 weeks for further evaluation including x-rays and incision check, sooner if having any issues or concerns. Postop day 2 PT/OT protocols. Weightbearing as tolerated. DVT prophylaxis-aspirin p.o. twice daily, SCDs, TRAVIS brown. Pain management as written. DC planning-patient is planning for home health services upon discharge. Discharge today. Lab Results 10/12/20 10/12/20 10/12/20 Range/Units 14:52 14:52 14:52 WBC 5.70 (4.8-10.8) K/uL RBC 4.68 (4.2-5.4) M/uL Hgb 13.5 (12.0-16.0) g/dL Hct 40.7 (37-47) % MCV 87.0 (80-100) fL MCH 28.8 (25-34) pg MCHC 33.2 (32-36) g/dL RDW Std Deviation 42.5 (36.4-46.3) fL RDW Coeff of Ivonne 13.4 (11.5-14.5) % Plt Count 332 (130-400) K/uL MPV 9.7 (7.4-10.4) fL Immature Gran % (Auto) 0.2 % Neut % (Auto) 60.8 % Lymph % (Auto) 27.0 % Ellis % (Auto) 9.8 % Eos % (Auto) 1.8 % Baso % (Auto) 0.4 % Neut # (Auto) 3.47 (1.4-6.5) K/uL Lymph # (Auto) 1.54 (1.2-3.4) K/uL Ellis # (Auto) 0.56 (0.11-0.59) K/uL Eos # (Auto) 0.10 (0-0.5) K/uL Baso # (Auto) 0.02 (0-0.2) K/uL Immature Gran # (Auto) 0.01 (0.00-0.02) K/uL PT 10.3 (9.0-12.0) Seconds INR 1.0 (0.9-1.1) APTT 25.7 (21.0-31.0) Seconds PTT Ratio 1.0 Sodium (136-145) mmol/L Potassium (3.5-5.1) mmol/L Chloride (98-107) mmol/L Carbon Dioxide (21-32) mmol/L Anion Gap (3-11) BUN (7-18) mg/dl Creatinine (0.6-1.2) mg/dl Est Cr Clr Drug Dosing ml/min Est GFR ( Amer) Est GFR (Non-Af Amer) BUN/Creatinine Ratio (10-20) Glucose (70-99) mg/dl Estimat Average Glucose mg/dl Hemoglobin A1c (4.5-5.6) % Calcium (8.5-10.1) mg/dl Albumin (3.4-5.0) gm/dl Triglycerides (0-150) mg/dl Cholesterol (0-200) mg/dl LDL Cholesterol, Calc mg/dl VLDL Cholesterol, Calc mg/dl HDL Cholesterol mg/dl Cholesterol/HDL Ratio Vitamin B12 (193-986) pg/ml 25-OH Vitamin D Total (30-100) ng/ml TSH (0.300-4.500) uIu/ml Urine Color Urine Appearance (Clear) Urine pH (4.5-7.5) Ur Specific [place] (1.000-1.030) Urine Protein (Negative) Urine Glucose (UA) (Negative) Urine Ketones (Negative) Urine Blood (Negative) Urine Nitrite (Negative) Urine Bilirubin (Negative) Urine Urobilinogen (Negative) Ur Leukocyte Esterase (Negative) Urine WBC (Auto) (0-5) /hpf Urine RBC (Auto) (0-4) /hpf U Hyaline Cast (Auto) (0-5) /lpf U Epithel Cells (Auto) (0-5) /lpf Urine Bacteria (Auto) (Negative) Ur Renal Epithelial Cell Urine Mucus (None Prsent) COVID-19 Eval Order SARS-CoV-2 (PCR) (Negative) Hepatitis C Ab Screen (Neg) Influenza Type A (PCR) (Neg) Influenza Type B (PCR) (Neg) RSV (RT-PCR) (Neg) Blood Type A Negative Antibody Screen NEGATIVE 10/12/20 10/12/20 10/12/20 Range/Units 14:52 14:52 14:52 WBC (4.8-10.8) K/uL RBC (4.2-5.4) M/uL Hgb (12.0-16.0) g/dL Hct (37-47) % MCV (80-100) fL MCH (25-34) pg MCHC (32-36) g/dL RDW Std Deviation (36.4-46.3) fL RDW Coeff of Ivonne (11.5-14.5) % Plt Count (130-400) K/uL MPV (7.4-10.4) fL Immature Gran % (Auto) % Neut % (Auto) % Lymph % (Auto) % Ellis % (Auto) % Eos % (Auto) % Baso % (Auto) % Neut # (Auto) (1.4-6.5) K/uL Lymph # (Auto) (1.2-3.4) K/uL Ellis # (Auto) (0.11-0.59) K/uL Eos # (Auto) (0-0.5) K/uL Baso # (Auto) (0-0.2) K/uL Immature Gran # (Auto) (0.00-0.02) K/uL PT (9.0-12.0) Seconds INR (0.9-1.1) APTT (21.0-31.0) Seconds PTT Ratio Sodium 142 (136-145) mmol/L Potassium 4.1 (3.5-5.1) mmol/L Chloride 110 H (98-107) mmol/L Carbon Dioxide 27 (21-32) mmol/L Anion Gap 5.0 (3-11) BUN 14 (7-18) mg/dl Creatinine 0.80 (0.6-1.2) mg/dl Est Cr Clr Drug Dosing 106.7 ml/min Est GFR ( Amer) 93.5 Est GFR (Non-Af Amer) 80.7 BUN/Creatinine Ratio 17.1 (10-20) Glucose 108 H (70-99) mg/dl Estimat Average Glucose 117 mg/dl Hemoglobin A1c 5.7 H (4.5-5.6) % Calcium 8.4 L (8.5-10.1) mg/dl Albumin 3.2 L (3.4-5.0) gm/dl Triglycerides (0-150) mg/dl Cholesterol (0-200) mg/dl LDL Cholesterol, Calc mg/dl VLDL Cholesterol, Calc mg/dl HDL Cholesterol mg/dl Cholesterol/HDL Ratio Vitamin B12 (193-986) pg/ml 25-OH Vitamin D Total (30-100) ng/ml TSH (0.300-4.500) uIu/ml Urine Color Dark Yellow Urine Appearance Clear (Clear) Urine pH 5.0 (4.5-7.5) Ur Specific [place] 1.033 H (1.000-1.030) Urine Protein Negative (Negative) Urine Glucose (UA) Negative (Negative) Urine Ketones Trace H (Negative) Urine Blood Negative (Negative) Urine Nitrite Negative (Negative) Urine Bilirubin Negative (Negative) Urine Urobilinogen Negative (Negative) Ur Leukocyte Esterase 2+ H (Negative) Urine WBC (Auto) >30 H (0-5) /hpf Urine RBC (Auto) 5-10 H (0-4) /hpf U Hyaline Cast (Auto) 10-30 H (0-5) /lpf U Epithel Cells (Auto) >30 H (0-5) /lpf Urine Bacteria (Auto) 1+ H (Negative) Ur Renal Epithelial Cell Not Reportable Urine Mucus Present A (None Prsent) COVID-19 Eval Order SARS-CoV-2 (PCR) (Negative) Hepatitis C Ab Screen (Neg) Influenza Type A (PCR) (Neg) Influenza Type B (PCR) (Neg) RSV (RT-PCR) (Neg) Blood Type Antibody Screen 11/09/20 11/09/20 11/09/20 Range/Units 05:57 Unknown Unknown WBC (4.8-10.8) K/uL RBC (4.2-5.4) M/uL Hgb (12.0-16.0) g/dL Hct (37-47) % MCV (80-100) fL MCH (25-34) pg MCHC (32-36) g/dL RDW Std Deviation (36.4-46.3) fL RDW Coeff of Ivonne (11.5-14.5) % Plt Count (130-400) K/uL MPV (7.4-10.4) fL Immature Gran % (Auto) % Neut % (Auto) % Lymph % (Auto) % Ellis % (Auto) % Eos % (Auto) % Baso % (Auto) % Neut # (Auto) (1.4-6.5) K/uL Lymph # (Auto) (1.2-3.4) K/uL Ellis # (Auto) (0.11-0.59) K/uL Eos # (Auto) (0-0.5) K/uL Baso # (Auto) (0-0.2) K/uL Immature Gran # (Auto) (0.00-0.02) K/uL PT (9.0-12.0) Seconds INR (0.9-1.1) APTT (21.0-31.0) Seconds PTT Ratio Sodium (136-145) mmol/L Potassium (3.5-5.1) mmol/L Chloride (98-107) mmol/L Carbon Dioxide (21-32) mmol/L Anion Gap (3-11) BUN (7-18) mg/dl Creatinine (0.6-1.2) mg/dl Est Cr Clr Drug Dosing ml/min Est GFR ( Amer) Est GFR (Non-Af Amer) BUN/Creatinine Ratio (10-20) Glucose (70-99) mg/dl Estimat Average Glucose mg/dl Hemoglobin A1c (4.5-5.6) % Calcium (8.5-10.1) mg/dl Albumin (3.4-5.0) gm/dl Triglycerides (0-150) mg/dl Cholesterol (0-200) mg/dl LDL Cholesterol, Calc mg/dl VLDL Cholesterol, Calc mg/dl HDL Cholesterol mg/dl Cholesterol/HDL Ratio Vitamin B12 (193-986) pg/ml 25-OH Vitamin D Total 31.0 (30-100) ng/ml TSH (0.300-4.500) uIu/ml Urine Color Urine Appearance (Clear) Urine pH (4.5-7.5) Ur Specific [place] (1.000-1.030) Urine Protein (Negative) Urine Glucose (UA) (Negative) Urine Ketones (Negative) Urine Blood (Negative) Urine Nitrite (Negative) Urine Bilirubin (Negative) Urine Urobilinogen (Negative) Ur Leukocyte Esterase (Negative) Urine WBC (Auto) (0-5) /hpf Urine RBC (Auto) (0-4) /hpf U Hyaline Cast (Auto) (0-5) /lpf U Epithel Cells (Auto) (0-5) /lpf Urine Bacteria (Auto) (Negative) Ur Renal Epithelial Cell Urine Mucus (None Prsent) COVID-19 Eval Order CovFluRsv at [facility] SARS-CoV-2 (PCR) NEGATIVE (Negative) Hepatitis C Ab Screen Neg (Neg) Influenza Type A (PCR) Negative (Neg) Influenza Type B (PCR) Negative (Neg) RSV (RT-PCR) Negative (Neg) Blood Type Antibody Screen 11/10/20 11/10/20 11/10/20 Range/Units 07:35 07:35 07:35 WBC 9.83 (4.8-10.8) K/uL RBC 4.32 (4.2-5.4) M/uL Hgb 12.5 (12.0-16.0) g/dL Hct 37.5 (37-47) % MCV 86.8 (80-100) fL MCH 28.9 (25-34) pg MCHC 33.3 (32-36) g/dL RDW Std Deviation 42.5 (36.4-46.3) fL RDW Coeff of Ivonne 13.3 (11.5-14.5) % Plt Count 321 (130-400) K/uL MPV 9.3 (7.4-10.4) fL Immature Gran % (Auto) % Neut % (Auto) % Lymph % (Auto) % Ellis % (Auto) % Eos % (Auto) % Baso % (Auto) % Neut # (Auto) (1.4-6.5) K/uL Lymph # (Auto) (1.2-3.4) K/uL Ellis # (Auto) (0.11-0.59) K/uL Eos # (Auto) (0-0.5) K/uL Baso # (Auto) (0-0.2) K/uL Immature Gran # (Auto) (0.00-0.02) K/uL PT (9.0-12.0) Seconds INR (0.9-1.1) APTT (21.0-31.0) Seconds PTT Ratio Sodium 142 (136-145) mmol/L Potassium 4.1 (3.5-5.1) mmol/L Chloride 111 H (98-107) mmol/L Carbon Dioxide 26 (21-32) mmol/L Anion Gap 5.0 (3-11) BUN 16 (7-18) mg/dl Creatinine 0.72 (0.6-1.2) mg/dl Est Cr Clr Drug Dosing 116.8 ml/min Est GFR ( Amer) 105.5 Est GFR (Non-Af Amer) 91.0 BUN/Creatinine Ratio 22.3 H (10-20) Glucose 121 H (70-99) mg/dl Estimat Average Glucose mg/dl Hemoglobin A1c (4.5-5.6) % Calcium 8.4 L (8.5-10.1) mg/dl Albumin (3.4-5.0) gm/dl Triglycerides 95 (0-150) mg/dl Cholesterol 185 (0-200) mg/dl LDL Cholesterol, Calc 110 mg/dl VLDL Cholesterol, Calc 19 mg/dl HDL Cholesterol 56 mg/dl Cholesterol/HDL Ratio 3 Vitamin B12 776 (193-986) pg/ml 25-OH Vitamin D Total (30-100) ng/ml TSH 0.475 (0.300-4.500) uIu/ml Urine Color Urine Appearance (Clear) Urine pH (4.5-7.5) Ur Specific [place] (1.000-1.030) Urine Protein (Negative) Urine Glucose (UA) (Negative) Urine Ketones (Negative) Urine Blood (Negative) Urine Nitrite (Negative) Urine Bilirubin (Negative) Urine Urobilinogen (Negative) Ur Leukocyte Esterase (Negative) Urine WBC (Auto) (0-5) /hpf Urine RBC (Auto) (0-4) /hpf U Hyaline Cast (Auto) (0-5) /lpf U Epithel Cells (Auto) (0-5) /lpf Urine Bacteria (Auto) (Negative) Ur Renal Epithelial Cell Urine Mucus (None Prsent) COVID-19 Eval Order SARS-CoV-2 (PCR) (Negative) Hepatitis C Ab Screen (Neg) Influenza Type A (PCR) (Neg) Influenza Type B (PCR) (Neg) RSV (RT-PCR) (Neg) Blood Type Antibody Screen Total Time Total Time Spent Total Time Spent (In Minutes): 20 Discharge Plan Discharge Items Patient Disposition: Home - Home Health Services Reason For Visit: Unilateral Primary Osteoarthritis, Right Knee Discharge Diagnosis: Right knee osteoarthritis Activity: Per Instructions section Weightbearing: Right weightbearing Weightbearing Comment: As tolerated with walker Non-emergency contact: Surgeon Call non-emergency contact if: your pain is not controlled, your temperature is above 101.5, your wound has increased redness and your wound has increased drainage Follow-up/Referrals: Miguel Sorensen DO [Primary Care Provider] - Diet: Regular Addtl Attending Provider Instructions: ACTIVITY RECOMMENDATIONS: SELF CARE INSTRUCTIONS AFTER TOTAL KNEE REPLACEMENT A. You may need to continue a physical therapy program after discharge from the hospital. There are several options available to you. Your doctor will assist you in selecting the best one for you. 1. An out-patient facility 2 to 3 times a week for therapy or home therapy. 2. Continue working on all exercises taught to you in the hospital. Your goals should be to increase bending of your knee to 90 degrees and beyond and to fully straighten your knee. B. You may progress at your own pace from walking with a walker or crutches to a cane; then to no assistive devices. C. Make walking a part of your daily routine. Be up as much as comfortable with rest periods throughout the day. Rest with leg elevation is very important. Use the ice wrap frequently for the first 3-4 weeks. D. There are no restrictions on activities. You may ride in a car, shop, participate in choke reamer and all social activities. E. Wear the long elastic stockings (TRAVIS hose) 20 hours a day for 2 weeks after surgery. They can be removed several times a day for laundering and for a bath. F. You may shower, no tub baths until cleared by your doctor. SPECIAL CARE INSTRUCTIONS: VERY IMPORTANT TO READ AND REVIEW A. There are a few signs you need to watch for after you are home. Call [facility] if you notice any of the followin. Increased severe knee pain. Some pain is expected especially when you exercise. 2. Increased swelling in your leg or knee; pain or swelling of the calf muscle in either lower leg. 3. Any fluid drainage from the incision. 4. Shortness of breath or chest pain. B. Please call [facility] at if you have any concerns or questions about your operation or recovery. The doctor or his nurse will return your call promptly. C. You must take antibiotics before dental work, bladder, bowel or other surgery. Your doctor will provide you with a permanent care to carry describing this precaution. IMPORTANT: * REMEMBER TO TAKE ASPIRIN, 81 MG, TWICE DAILY FOR 4 WEEKS UNLESS OTHERWISE D IRECTED. THIS IS YOUR BLOOD THINNER. * HIGH RISK PATIENTS MAY BE PRESCRIBED A STRONGER BLOOD THINNER. THIS WILL BE PROVIDED AT DISCHARGE. * CALL IF INCREASED PAIN, REDNESS, DRAINAGE OR FEVER GREATER THAT 101. * WEAR TRAVIS HOSE 20 HOURS PER DAY FOR 2 WEEKS. This is a large suction dressing covering your incision. This will help pull any excess drainage from the wound and allow your incision to heal properly. You may shower with this if you can keep the unit outside of the shower. If any bleeding or leakage is noted please call your doctor's office. This will remain on your incision for 7 days and then should be removed. This can be done yourself or by the home nursing staff if applicable. The entire unit is disposable once removed. Once removed, keep incision clean and dry. If redness or drainage is noted, please call your surgeon. IF INCISION IS LEAKING THROUGH DRESSING, CALL THE OFFICE . FOLLOW UP VISIT: If appointment is not already scheduled: Please call [facility] to make a follow-up appointment for 2 weeks after your surgery at . Stand-Alone Forms: [employer], Smoking Cessation Medications and DC Order Prescriptions: New celecoxib [Celebrex] 200 mg Capsule 200 mg PO BID 14 Days Qty: 28 RF: 0 aspirin 81 mg Tablet,Delayed Release (Dr/Ec) 81 mg PO BID 30 Days Qty: 60 RF: 0 acetaminophen 500 mg Tablet 1,000 mg PO Q8 14 Days Qty: 84 RF: 0 oxycodone 5 mg Tablet 5 - 10 mg PO .Q4h-6h MDD 6 PRN (Reason: pain) Qty: 30 RF: 0 Continued cyanocobalamin (vitamin B-12) [Vitamin B-12] 1,000 mcg Tablet 1,000 mcg PO UD RF: 0 multivitamin Capsule 1 cap PO BID RF: 0 coenzyme Q10 [Co Q-10] 200 mg Capsule 200 mg PO QAM RF: 0 cholecalciferol (vitamin D3) [Vitamin D3] 50 mcg (2,000 unit) Tablet 50 mcg PO QAM RF: 0 levothyroxine 125 mcg Capsule 125 mcg PO QAM RF: 0 sennosides [Senokot] 8.6 mg tablet 17.2 mg PO UD PRN (Reason: Constipation) RF: 0 albuterol sulfate 90 mcg/actuation Hfa Aerosol Inhaler 1 inh INHALATION UD PRN (Reason: COLD WEATHER COUGH) RF: 0 Discharge Orders: Discharge Order (Routine); Ordered 11/11/20 Ordered By: Bill Weiss Admission Data Admit Date/Time: 11/09/20 09:44 Attending Provider: Shree Chang Admit Provider: Shree Chang Primary Care Provider: Miguel Sorensen Other Providers: Ally Gtz Other Interventions: Discharge Summary Assessment (RN) Last Done: 11/11/20 09:06
== END 2020-11-11 13:17 | disposition home health service (06) ==
LOC: 3E 05:04 → ASU 05:04